=== PATIENT | male | born 1950 | race Caucasian/White ===

== ENCOUNTER → 2019-12-10 | Outpatient (CLI) | payer MEDICARE, OTHER ==
--- NOTE | 2019-12-10 10:09 | Diagnostic Imaging Report ---
PROCEDURE: CT lumbar spine without contrast. TECHNIQUE: Multiple contiguous axial images were obtained through the lumbar spine without the use of intravenous contrast. Sagittal and coronal reformations were then performed. Auto Exposure Controls were utilized during the CT exam to meet ALARA standards for radiation dose reduction. INDICATION: Low back pain and left-sided pain. COMPARISON: No prior studies are available for comparison. FINDINGS: There is normal lumbar lordotic curvature. Minimal retrolisthesis of L2 on L3 is identified. There are postsurgical changes in the lumbar spine. There is posterior instrumented fusion with vertical stabilization rods and bipedicular screws extending from L3 through L5. Decompression laminectomy at these levels also noted. The hardware is intact. No fracture or loosening is identified. Intervertebral prosthesis at the L4-L5 level is noted. The vertebral body heights are maintained. No acute compression fractures are identified. There is multilevel lumbar degenerative disc disease with variable disc space narrowing and marginal spurring. No acute bony abnormality is detected. The paraspinous tissues are unremarkable. Aorta is non-aneurysmal. IMPRESSION: Postoperative changes, decompression laminectomy and posterior instrumented fusion L3 through L5. No hardware fracture or loosening is identified. No acute bony abnormality is detected. Dictated by: Dictated on workstation # [id number]
== END ==
LOC: RAD FS 09:49
PROVIDERS: ATTEND Family Medicine
DX: M45.6 Ankylosing spondylitis lumbar region (principal); Z98.890 Other specified postprocedural states
CPT/HCPCS: 72131

== ENCOUNTER 2020-10-24 11:03 | Inpatient (IN) | payer MEDICARE, OTHER ==
[~2020-10-24] VITALS: Ht 188 cm; Wt 97.9 kg
--- NOTE | 2020-10-24 11:52 | NUR ---
Pt reports to Dr. Morales he would like to be a modified code. Pt would like ventilation or respiratory efforts only, but no CPR.
[2020-10-24] MEDS ORDERED: LACTATED RINGERS 1,000 ML IV ONE ×2 (11:54→12:00)
[2020-10-24 12:20] LABS: BILIRUBIN,URINE NEGATIVE (NEGATIVE); CLARITY,URINE CLEAR; COLOR,URINE YELLOW; GLUCOSE, URINE (UA) NEGATIVE (NEGATIVE); KETONES,URINE 1+ (NEGATIVE); LEUKOCYTE ESTERASE ,URINE NEGATIVE (NEGATIVE); NITRITE,URINE NEGATIVE (NEGATIVE); PROTEIN,URINE TRACE (NEGATIVE)
--- NOTE | 2020-10-24 12:20 | NUR ---
Spoke to pt's via phone regarding plan of care.
[2020-10-24 12:27] LABS: BASOPHILS % (AUTO) 0 % (0-10); EOSINOPHILS # (AUTO) 0.2 10^3/uL (0.0-0.3); EOSINOPHILS % (AUTO) 2 % (0-10); HEMATOCRIT 44 % (40-54); HEMOGLOBIN 14.7 g/dL (13.3-17.7); LYMPHOCYTES # (AUTO) 0.6 10^3/uL (1.0-4.0); LYMPHOCYTES % (AUTO) 6 % (12-44); MEAN CORPUSCULAR HEMOGLOBIN 32 pg (25-34); MEAN CORPUSCULAR HGB CONC 33 g/dL (32-36); MEAN CORPUSCULAR VOLUME 96 fL (80-99); MEAN PLATELET VOLUME 10.2 fL (9.0-12.2); MONOCYTES # (AUTO) 0.5 10^3/uL (0.0-1.0); MONOCYTES % (AUTO) 6 % (0-12); NEUTROPHILS # (AUTO) 7.9 10^3/uL (1.8-7.8); NEUTROPHILS % (AUTO) 85 % (42-75); PLATELET COUNT 412 10^3/uL (130-400); WHITE BLOOD COUNT 9.3 10^3/uL (4.3-11.0)
[2020-10-24 12:34] LABS: ALBUMIN 3.7 GM/DL (3.2-4.5); CHLORIDE 102 MMOL/L (98-107); SODIUM 136 MMOL/L (135-145)
[2020-10-24 12:35] LABS: CALCIUM 9.3 MG/DL (8.5-10.1)
[2020-10-24 12:36] LABS: BACTERIA,URINE TRACE /HPF; WBC,URINE RARE /HPF
[2020-10-24 12:37] LABS: GLUCOSE 104 MG/DL (70-105); TOTAL PROTEIN 7.9 GM/DL (6.4-8.2)
[2020-10-24 12:37] LABS: AMORPHOUS SEDIMENT,UR FEW AMOR URATES /LPF
[2020-10-24 12:38] LABS: CARBON DIOXIDE 21 MMOL/L (21-32)
[2020-10-24 12:40] LABS: ALKALINE PHOSPHATASE 155 U/L (40-136)
[2020-10-24 12:41] LABS: CREATININE SERUM 1.05 MG/DL (0.60-1.30); GFR ESTIMATED > 60
[2020-10-24 12:42] LABS: BUN/CREATININE RATIO 21
--- NOTE | 2020-10-24 12:42 | Diagnostic Imaging Report ---
INDICATION: Covid and hypoxia. COMPARISON: I have no comparisons. FINDINGS: There are extensive patchy bilateral pulmonary infiltrates involving all 5 lobes. There is no effusion or pneumothorax. The heart size and pulmonary vascularity appear normal. No failure pattern. The unipolar pacemaker appears unremarkable. IMPRESSION: Bilateral multifocal pneumonia without pleural fluid or failure pattern. The report was faxed to Infection Control by denita@12:39 PM. Dictated by: Dictated on workstation # [id number]
[2020-10-24 12:43] LABS: ALANINE AMINOTRANSFERASE 40 U/L (0-55)
[2020-10-24 12:44] LABS: MAGNESIUM 2.5 MG/DL (1.6-2.4)
[2020-10-24 13:10] LABS: EOSINOPHILS % (MANUAL) 1 %; LYMPHOCYTES % (MANUAL) 5 %; MONOCYTES % (MANUAL) 5 %; NEUTROPHILS % (MANUAL) 89 %; RBC MORPH NORMAL
[2020-10-24] MEDS ORDERED: cefTRIAXone FOR IV USE 1,000 MG in WATER (STERILE) FOR INJECTION 10 ML IV ONE (13:15)
--- NOTE | 2020-10-24 13:40 | ED General ---
General Chief Complaint: Respiratory Problems Stated Complaint: COVID + Nursing Triage Note: Pt to ED in wheelchair from [facility]. Pt reports COVID symptoms began on October 04 and pt tested positive on October 12. Pt brought log of O2 sats and temperature since diagnosis and pt's O2 sats have been in the 80s since. Pt has had intermittent temperature of 101-102 for two weeks. Pt reports 35 pound weight loss since diagnosis. Pt reports semml of food is revolting and pt is unable to eat. Nursing Sepsis Screen: No Definite Risk Source of Information: Patient Exam Limitations: No Limitations History of Present Illness Date Seen by Provider: Oct 24, 2020 Time Seen by Provider: 11:50 Initial Comments This 70-year-old gentleman presents to the emergency room with a prolonged course of COVID-19. He initially became ill around October 04. He tested positive on October 12. Since then he has struggled with a 35 pound weight loss, loss of appetite, shortness of breath, persistent hypoxic measurements in the 80s at home on room air, recurrent fevers, and weakness. He received a round of a azithromycin and prednisone but still is struggling. He presents to the ER today at the urging of his . He is hypoxic on initial assessment. He had diarrhea early in the course of illness but that has resolved. Dr. Blair is his primary care provider at [facility]. Allergies and Home Medications Allergies Coded Allergies: No Known Drug Allergies (Unverified , 10/24/20) Patient Home Medication List Home Medication List Reviewed: Yes Review of Systems Review of Systems Constitutional: see HPI EENTM: no symptoms reported Respiratory: see HPI Cardiovascular: no symptoms reported Gastrointestinal: see HPI Genitourinary: no symptoms reported Musculoskeletal: no symptoms reported Skin: no symptoms reported Psychiatric/Neurological: No Symptoms Reported Hematologic/Lymphatic: No Symptoms Reported Immunological/Allergic: no symptoms reported Past Xldmezo-Dfeqov-Jiowit Hx Past Med/Social Hx: Reviewed Nursing Past Med/Soc Hx Patient Social History Alcohol Use: Past History Recreational Drug Use: No Smoking Status: Former Smoker 2nd Hand Smoke Exposure: No Recent Foreign Travel: No Contact w/Someone Who Travel: No Recent Infectious Disease Expo: No Recent Hopitalizations: No Seasonal Allergies Seasonal Allergies: No Past Medical History Surgeries: Yes (hernia) Abdominal Respiratory: No Cardiac: Yes (bradycardia pacemaker) Irregular Heartbeat Neurological: No Genitourinary: Yes ("prostate problems") Gastrointestinal: Yes (hernia surgery) Musculoskeletal: Yes Arthritis Endocrine: No HEENT: No Cancer: No Psychosocial: Yes Anxiety Integumentary: No Blood Disorders: No Adverse Reaction/Blood Tranf: No Physical Exam-Suspected Sepsis Physical Exam Vital Signs Vital Signs - First Documented 10/24/20 11:15 Temp 37.3 Pulse 95 Resp 30 B/P (MAP) 129/83 (98) Pulse Ox 86 O2 Delivery Room Air O2 Flow Rate 4.00 Capillary Refill : Less Than 3 Seconds Blood Pressure Mean: 98 Height, Weight, BMI Height: '" Weight: lbs. oz. 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 Norm as Tested Skin: normal color, warm/dry Focused Exam Lactate Level 10/24/20 14:01: Lactic Acid Level 1.30 Lactic Acid Level Progress/Results/Core Measures Suspected Sepsis Recent Fever Within 48 Hours: Yes Infection Criteria Present: None New/Unexplained Altered Menta: No Sepsis Screen: No Definite Risk SIRS Temperature: Pulse: 95 Respiratory Rate: 30 Laboratory Tests 10/24/20 11:30: White Blood Count 9.3 Blood Pressure 129 /83 Mean: 98 10/24/20 14:01: Lactic Acid Level 1.30 Laboratory Tests 10/24/20 11:30: Creatinine 1.05, INR Comment 1.1, Platelet Count 412H, Total Bilirubin 1.0 Results/Orders Lab Results Laboratory Tests Test 10/24/20 11:30 10/24/20 12:05 10/24/20 14:01 Range/Units White Blood Count 9.3 4.3-11.0 10^3/uL Red Blood Count 4.58 4.30-5.52 10^6/uL Hemoglobin 14.7 13.3-17.7 g/dL Hematocrit 44 40-54 % Mean Corpuscular Volume 96 80-99 fL Mean Corpuscular Hemoglobin 32 25-34 pg Mean Corpuscular Hemoglobin Concent 33 32-36 g/dL Red Cell Distribution Width 13.2 10.0-14.5 % Platelet Count 412 H 130-400 10^3/uL Mean Platelet Volume 10.2 9.0-12.2 fL Immature Granulocyte % (Auto) 1 % Neutrophils (%) (Auto) 85 H 42-75 % Lymphocytes (%) (Auto) 6 L 12-44 % Monocytes (%) (Auto) 6 0-12 % Eosinophils (%) (Auto) 2 0-10 % Basophils (%) (Auto) 0 0-10 % Neutrophils # (Auto) 7.9 H 1.8-7.8 10^3/uL Lymphocytes # (Auto) 0.6 L 1.0-4.0 10^3/uL Monocytes # (Auto) 0.5 0.0-1.0 10^3/uL Eosinophils # (Auto) 0.2 0.0-0.3 10^3/uL Basophils # (Auto) 0.0 0.0-0.1 10^3/uL Immature Granulocyte # (Auto) 0.1 0.0-0.1 10^3/uL Neutrophils % (Manual) 89 % Lymphocytes % (Manual) 5 % Monocytes % (Manual) 5 % Eosinophils % (Manual) 1 % Blood Morphology Comment NORMAL Prothrombin Time 14.5 12.2-14.7 SEC INR Comment 1.1 0.8-1.4 Activated Partial Thromboplast Time 42 H 24-35 SEC D-Dimer 2.49 H 0.00-0.49 UG/ML Sodium Level 136 135-145 MMOL/L Potassium Level 4.0 3.6-5.0 MMOL/L Chloride Level 102 98-107 MMOL/L Carbon Dioxide Level 21 21-32 MMOL/L Anion Gap 13 5-14 MMOL/L Blood Urea Nitrogen 22 H 7-18 MG/DL Creatinine 1.05 0.60-1.30 MG/DL Estimat Glomerular Filtration Rate > 60 BUN/Creatinine Ratio 21 Glucose Level 104 70-105 MG/DL Calcium Level 9.3 8.5-10.1 MG/DL Corrected Calcium 9.5 8.5-10.1 MG/DL Magnesium Level 2.5 H 1.6-2.4 MG/DL Total Bilirubin 1.0 0.1-1.0 MG/DL Aspartate Amino Transf (AST/SGOT) 26 5-34 U/L Alanine Aminotransferase (ALT/SGPT) 40 0-55 U/L Alkaline Phosphatase 155 H 40-136 U/L C-Reactive Protein High Sensitivity 23.39 H 0.00-0.50 MG/DL Total Protein 7.9 6.4-8.2 GM/DL Albumin 3.7 3.2-4.5 GM/DL Procalcitonin 0.11 H <0.10 NG/ML Urine Color YELLOW Urine Clarity CLEAR Urine pH 6.0 5-9 Urine Specific [place] 1.020 1.016-1.022 Urine Protein TRACE H NEGATIVE Urine Glucose (UA) NEGATIVE NEGATIVE Urine Ketones 1+ H NEGATIVE Urine Nitrite NEGATIVE NEGATIVE Urine Bilirubin NEGATIVE NEGATIVE Urine Urobilinogen 2.0 < = 1.0 MG/DL Urine Leukocyte Esterase NEGATIVE NEGATIVE Urine RBC (Auto) NEGATIVE NEGATIVE Urine RBC NONE /HPF Urine WBC RARE /HPF Urine Crystals PRESENT H /LPF Urine Amorphous Sediment FEW MICHAEL URATES H /LPF Urine Bacteria TRACE /HPF Urine Casts NONE /LPF Urine Mucus NEGATIVE /LPF Urine Culture Indicated NO Lactic Acid Level 1.30 0.50-2.00 MMOL/L Micro Results Microbiology 10/24/20 Blood Culture, Received Pending My Orders Orders - NIHARIKA ARANGO MD Lactated Ringers (Lr 1000 Ml Iv Solution (10/24/20 11:54) Chest 1 View, Ap/Pa Only (10/24/20 11:58) Cbc With Automated Diff (10/24/20 11:58) Comprehensive Metabolic Panel (10/24/20 11:58) Fibrin Degradation Products (10/24/20 11:58) Procalcitonin (Pct) (10/24/20 11:58) Hs C Reactive Protein (10/24/20 11:58) Magnesium (10/24/20 11:58) Ua Culture If Indicated (10/24/20 11:58) Ed Iv/Invasive Line Start (10/24/20 11:58) Lactated Ringers (Lr 1000 Ml Iv Solution (10/24/20 12:00) O2 (10/24/20 11:58) Monitor-Rhythm Ecg Trace Only (10/24/20 11:58) Manual Differential (10/24/20 11:30) Ct Angio Chest W (10/24/20 13:13) Blood Culture (10/24/20 13:13) Sputum Culture (10/24/20 13:13) Urine Culture (10/24/20 13:13) Protime With Inr (10/24/20 13:13) Partial Thromboplastin Time (10/24/20 13:13) Ed Iv/Invasive Line Start (10/24/20 13:13) Vital Signs Adult Sepsis Patie Q15M (10/24/20 13:13) O2 (10/24/20 13:13) Remove Rings In Anticipation O (10/24/20 13:13) Lactic Acid Analyzer (10/24/20 13:13) Dexamethasone Injection (Decadron Inje (10/24/20 13:15) Ceftriaxone For Iv Use (Rocephin For I (10/24/20 13:15) Iohexol Injection (Omnipaque 350 Mg/Ml 1 (10/24/20 13:45) Received Contrast (Hold Metformin- Contr (10/24/20 13:45) Sodium Chloride Flush (Catheter Flush Sy (10/24/20 13:45) Ns (Ivpb) (Sodium Chloride 0.9% Ivpb Bag (10/24/20 13:45) Ketorolac Injection (Toradol Injection) (10/24/20 14:45) Medications Given in ED Current Medications Medications Dose Ordered Sig/Vivian Route Start Time Stop Time Status Last Admin Dose Admin Ceftriaxone Sodium 1000 mg/ Sterile Water 10 ml @ 200 mls/hr ONCE ONCE IV 10/24/20 13:15 10/24/20 13:17 DC 10/24/20 14:28 200 MLS/HR Dexamethasone Sodium Phosphate 6 mg ONCE ONCE IV 10/24/20 13:15 10/24/20 13:16 DC 10/24/20 14:25 6 MG Iohexol 100 ml ONCE ONCE IV 10/24/20 13:45 10/24/20 13:46 DC 10/24/20 14:15 79 ML Ketorolac Tromethamine 15 mg ONCE ONCE IVP 10/24/20 14:45 10/24/20 14:46 DC 10/24/20 14:44 15 MG Lactated Ringer's 1,000 ml @ STK-MED ONCE IV 10/24/20 11:54 10/24/20 11:57 DC 10/24/20 11:59 1,000 MLS/HR Sodium Chloride 100 ml ONCE ONCE IV 10/24/20 13:45 10/24/20 13:46 DC 10/24/20 14:16 80 ML Vital Signs/I&O 10/24/20 10/24/20 10/24/20 10/24/20 11:15 11:15 16:00 16:18 Temp 37.3 37.3 36.9 Pulse 95 75 85 Resp 30 30 18 B/P (MAP) 129/83 (98) 129/81 (98) 136/83 Pulse Ox 86 94 94 95 O2 Delivery Room Air OxyMask Nasal Cannula Nasal Cannula O2 Flow Rate 4.00 4.00 2.00 10/24/20 10/24/20 10/24/20 10/24/20 16:30 16:44 16:55 19:33 Temp 36.9 36.9 Pulse 85 80 Resp 18 B/P (MAP) 137/89 (105) Pulse Ox 95 95 91 O2 Delivery Nasal Cannula Nasal Cannula Nasal Cannula O2 Flow Rate 2.00 2.00 2.00 Capillary Refill : Less Than 3 Seconds Blood Pressure Mean: 98 Progress Note #1: Time: 13:39 Progress Note Patient received a liter of IV fluid. D-dimer was positive and CT angiogram is pending. Chest x-ray shows multilobar pneumonia and CRP is quite high. Concurrent pneumonia cannot be ruled out. Blood culture and lactic acid are be ing drawn and treatment with Rocephin is being initiated. Progress Note #2: Progress Note Patient appeared to have a multilobar pneumonia. He was treated with Rocephin and placed on the pneumonia protocol. Blood cultures and lactic acid were obtained. Due to his persistent hypoxic state and concerned about development of secondary pneumonia, he is being admitted. Diagnostic Imaging Diagonstic Imaging: Xray Plain Films/CT/US/NM/MRI: chest Comments NAME: MATEO JENKINS [facility] REC#: [id number] PT STATUS: ADM IN : 1950 PHYSICIAN: NIHARIKA ARANGO MD ADMIT DATE: 10/24/20/ Signed Date of Exam:10/24/20 CHEST 1 VIEW, AP/PA ONLY INDICATION: Covid and hypoxia. COMPARISON: I have no comparisons. FINDINGS: There are extensive patchy bilateral pulmonary infiltrates involving all 5 lobes. There is no effusion or pneumothorax. The heart size and pulmonary vascularity appear normal. No failure pattern. The unipolar pacemaker appears unremarkable. IMPRESSION: Bilateral multifocal pneumonia without pleural fluid or failure pattern. The report was faxed to Infection Control by [email or web address]@12:39 PM. Dictated by: Dictated on workstation # [id number] Dict: 10/24/20 1237 Trans: 10/24/20 1640 [id number] Interpreted by: VEE MARTINS Electronically signed by: VEE MARTINS 10/24/20 1640 Diagonstic Imaging: CT Plain Films/CT/US/NM/MRI: chest Comments NAME: MATEO JENKINS [facility] REC#: [id number] PT STATUS: ADM IN : 1950 PHYSICIAN: NIHARIKA ARANGO MD ADMIT DATE: 10/24/20 Signed Date of Exam:10/24/20 CT ANGIO CHEST W PROCEDURE: CT angiography of the chest with contrast. TECHNIQUE: Multiple contiguous axial images were obtained through the chest after uneventful bolus administration of intravenous contrast. 3D reconstructed CTA MIP acquisitions were also performed. Auto Exposure Controls were utilized during the CT exam to meet ALARA standards for radiation dose reduction. INDICATION: COVID pneumonia with cough and shortness of air. FINDINGS: Evaluation of the pulmonary arterial system is without evidence of thromboembolism. No definite filling defects are seen within central, lobar, or segmental branches. Thoracic aorta is normal in caliber. There is no dissection. There is no pericardial fluid. There is trace left pleural fluid. There are extensive airspace infiltrates throughout bilateral upper lobes as well as bilateral lower lobes, consistent with pneumonia. Upper abdomen is unremarkable. IMPRESSION: 1. No evidence of pulmonary embolism or thoracic aortic dissection. 2. Extensive bilateral airspace pulmonary infiltrates, consistent with pneumonia. Dictated by: Dictated on workstation # [id number] Dict: 10/24/20 1420 Trans: 10/24/20 183 [facility] [id number] Interpreted by: ANGELES WILLIS MD Electronically signed by: ANGELES WILLIS MD 10/24/20 183 Departure Communication (Admissions) Time/Spoke to Admitting Phy: 14:55 Dr. Ventura Impression Primary Impression: COVID-19 Additional Impressions: Hypoxia Weight loss Pneumonia Qualified Codes: J18.9 - Pneumonia, unspecified organism Disposition: ADMITTED INPATIENT Condition: Stable Admissions Decision to Admit Reason: Admit from ER (General) Decision to Admit/Date: Oct 24, 2020 Time/Decision to Admit Time: 12:00 Departure-Patient Inst. Referrals: MADELYN BLAIR MD (PCP/Family) Primary Care Physician NIHARIKA ARANGO MD Oct 24, 2020 13:40
[2020-10-24 13:44] LABS: INR 1.1 (0.8-1.4); PROTHROMBIN TIME PATIENT 14.5 SEC (12.2-14.7)
[2020-10-24] MEDS ORDERED: NS 100 ML (IVPB) BAG IV ONE (13:45)
[2020-10-24] MEDS ORDERED: CATHETER FLUSH 10 ML SYR IV PRN ×2 (13:45→16:45)
[2020-10-24] MEDS ORDERED: HOLD METFORMIN - RECEIVED CONTRAST 20 ML VIAL IV SCH (13:45)
[2020-10-24] MEDS ORDERED: IOHEXOL 350 MG/ML 100 ML (OMNIPAQUE 350) VIAL IV ONE (13:45)
--- NOTE | 2020-10-24 14:27 | Diagnostic Imaging Report ---
PROCEDURE: CT angiography of the chest with contrast. TECHNIQUE: Multiple contiguous axial images were obtained through the chest after uneventful bolus administration of intravenous contrast. 3D reconstructed CTA MIP acquisitions were also performed. Auto Exposure Controls were utilized during the CT exam to meet ALARA standards for radiation dose reduction. INDICATION: COVID pneumonia with cough and shortness of air. FINDINGS: Evaluation of the pulmonary arterial system is without evidence of thromboembolism. No definite filling defects are seen within central, lobar, or segmental branches. Thoracic aorta is normal in caliber. There is no dissection. There is no pericardial fluid. There is trace left pleural fluid. There are extensive airspace infiltrates throughout bilateral upper lobes as well as bilateral lower lobes, consistent with pneumonia. Upper abdomen is unremarkable. IMPRESSION: 1. No evidence of pulmonary embolism or thoracic aortic dissection. 2. Extensive bilateral airspace pulmonary infiltrates, consistent with pneumonia. Dictated by: Dictated on workstation # [id number]
[2020-10-24] MEDS ORDERED: KETOROLAC 30 MG/ML VIAL IVP ONE (14:45)
[2020-10-24 16:18] VITALS: BP 136/83
[2020-10-24] MEDS: LACTATED RINGERS 1,000 ML IV SCH (16:47)
[2020-10-24] MEDS: ENOXAPARIN 40 MG/0.4 ML (LOVENOX) SYR SC SCH (16:52)
[2020-10-24 16:55] VITALS: BP 136/83
[2020-10-24] MEDS ORDERED: AZITHROMYCIN 500 MG/NS 250 ML IVPB IV NR ×2 (17:00)
[2020-10-24] MEDS ORDERED: RT-ALBUTEROL INHALER HFA (VENTOLIN HFA) 18 GM IH PRN (17:00)
[2020-10-24] MEDS: RT-ALBUTEROL INHALER HFA (VENTOLIN HFA) 18 GM IH SCH ×2 (18:00→21:42)
[2020-10-24 19:33] VITALS: BP 137/89
[2020-10-24] MEDS ORDERED: OXYB10TA29 PO (23:48)
[2020-10-24] MEDS ORDERED: ALFU10TA12 PO (23:48)
[2020-10-24] MEDS ORDERED: HYDR-3817 PO (23:48)
[2020-10-24] MEDS ORDERED: CYCL10TA9 PO (23:48)
[2020-10-24] MEDS ORDERED: METO-352 PO (23:48)
[2020-10-24] MEDS ORDERED: GBPN600T PO (23:48)
[2020-10-24] MEDS ORDERED: MELO15TA39 PO (23:48)
[2020-10-24] MEDS ORDERED: ATOR10TA66 PO (23:48)
[2020-10-24] MEDS ORDERED: ALPR0.5T7 PO (23:51)
[2020-10-25] VITALS: BP 122/69
[2020-10-25] MEDS: LACTATED RINGERS 1,000 ML IV SCH ×4 (00:38→15:19)
[2020-10-25] MEDS: RT-ALBUTEROL INHALER HFA (VENTOLIN HFA) 18 GM IH SCH ×6 (02:55→21:21)
[2020-10-25 03:58] VITALS: BP 146/84
[2020-10-25] MEDS: ONDANSETRON 4 MG/2 ML (SDV) Z0FRAN IV PRN ×2 (04:33→08:49)
[2020-10-25 06:17] LABS: BASOPHILS % (AUTO) 0 % (0-10); EOSINOPHILS % (AUTO) 0 % (0-10); HEMATOCRIT 36 % (40-54); HEMOGLOBIN 11.9 g/dL (13.3-17.7); LYMPHOCYTES # (AUTO) 0.5 10^3/uL (1.0-4.0); LYMPHOCYTES % (AUTO) 8 % (12-44); MEAN CORPUSCULAR HEMOGLOBIN 32 pg (25-34); MEAN CORPUSCULAR HGB CONC 33 g/dL (32-36); MEAN CORPUSCULAR VOLUME 96 fL (80-99); MEAN PLATELET VOLUME 10.2 fL (9.0-12.2); MONOCYTES # (AUTO) 0.4 10^3/uL (0.0-1.0); MONOCYTES % (AUTO) 6 % (0-12); NEUTROPHILS # (AUTO) 5.2 10^3/uL (1.8-7.8); NEUTROPHILS % (AUTO) 85 % (42-75); PLATELET COUNT 383 10^3/uL (130-400); WHITE BLOOD COUNT 6.1 10^3/uL (4.3-11.0)
[2020-10-25 06:30] LABS: ALBUMIN 3.2 GM/DL (3.2-4.5); CHLORIDE 105 MMOL/L (98-107); POTASSIUM 4.3 MMOL/L (3.6-5.0); SODIUM 136 MMOL/L (135-145)
[2020-10-25 06:31] LABS: CALCIUM 8.5 MG/DL (8.5-10.1)
[2020-10-25 06:32] LABS: GLUCOSE 146 MG/DL (70-105)
[2020-10-25 06:33] LABS: TOTAL PROTEIN 6.7 GM/DL (6.4-8.2)
[2020-10-25 06:34] LABS: BILIRUBIN,TOTAL 0.6 MG/DL (0.1-1.0); CARBON DIOXIDE 20 MMOL/L (21-32)
[2020-10-25 06:36] LABS: ALKALINE PHOSPHATASE 131 U/L (40-136); CREATININE SERUM 0.89 MG/DL (0.60-1.30); GFR ESTIMATED > 60
[2020-10-25 06:37] LABS: BUN/CREATININE RATIO 26
[2020-10-25 06:39] LABS: ALANINE AMINOTRANSFERASE 34 U/L (0-55)
[2020-10-25 08:00] VITALS: BP 137/78
[2020-10-25] MEDS: AZITHROMYCIN 250 MG TAB (ZITHROMAX) PO SCH (08:06)
[2020-10-25 12:00] VITALS: BP 153/83
[2020-10-25] MEDS: cefTRIAXone 1,000 MG/SWFI 10 ML IV PUSH IV SCH ×2 (13:58)
--- NOTE | 2020-10-25 15:05 | NUR ---
SPOKE WITH THE PT (CALLED HIS ROOM PHONE) AND WENT THRU THE EXT MED HISTORY. Pranav HEREDIA RN ENTERED THE MED REC THIS MORNING AND ALL INFORMATION THE PT PROVIDES MATCHED WHAT THE NURSE ENTERED. FOR THIS REASON I WILL NOT MAKE ANY CHANGES TO THE MED REC AT THIS TIME
--- NOTE | 2020-10-25 15:39 | History & Physical ---
HPI History of Present Illness: 70 yo M that presented with shortness of breath and hypoxia with h/o positive covid on Oct 12. Patient states that he started having symptoms on Oct 04 and symptoms progressively got worse. 2 days ago he started feeling very weak and felt like it was time to come to the hospital. 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 He gets profoundly short of breath with any exertion and has become more weak. Patient states that he has had a very poor appetite and has had about a 35# weight loss since the beginning of Oct. He has been seen by his PCP and has completed a course of Azithromycin and steroids with little improvement. He has been having intermittent fevers 101-102 but has not had one for several days. Has had flu negative tests as an outpatient. Denies any HTN, DM or CAD. He is on chronic pain medications for neck and back pain s/p silvia insertion and fusion. Source: patient Exam Limitations: no limitations Date seen by provider: Oct 25, 2020 Time Seen by Provider: 09:45 Attending Physician Christin Ventura MD PCP Madelyn Blair MD Consult Date of Admission Oct 24, 2020 at 15:01 Home Medications Home Medications Reviewed patient Home Medication Reconciliation performed by pharmacy medication reconciliations lube technician and/or nursing. Patients Allergies have been reviewed. Allergies Coded Allergies: No Known Drug Allergies (Unverified , 10/24/20) [id number]-Szzuva Hx Patient Social History Living Status: Lives at home with Alcohol Use: Past History Recreational Drug Use: No Smoking Status: Former Smoker 2nd Hand Smoke Exposure: No Recent Foreign Travel: No Contact w/other who traveled: No Recent Hopitalizations: No Recent Infectious Disease Expo: No Immunizations Up To Date Date of Influenza Vaccine: Aug 03, 2020 Past Medical History Back and Neck surgery Bradycardia w/ pacer placement Family Medical History Significant Family History: No Pertinent Family Hx Review of Systems (CHC) Constitutional: fever, malaise, weakness EENTM: no symptoms reported Respiratory: dyspnea on exertion, short of breath Cardiovascular: no symptoms reported; No chest pain, No edema Gastrointestinal: No abdominal pain; loss of appetite, nausea; No vomiting Genitourinary: no symptoms reported; No dysuria, No frequency, No hematuria Musculoskeletal: back pain (chronic) Skin: no symptoms reported Psychiatric/Neurological: No Symptoms Reported Reviewed Test Results Reviewed Test Results Lab Laboratory Tests Test 10/25/20 05:53 Range/Units White Blood Count 6.1 4.3-11.0 10^3/uL Red Blood Count 3.72 L 4.30-5.52 10^6/uL Hemoglobin 11.9 L 13.3-17.7 g/dL Hematocrit 36 L 40-54 % Mean Corpuscular Volume 96 80-99 fL Mean Corpuscular Hemoglobin 32 25-34 pg Mean Corpuscular Hemoglobin Concent 33 32-36 g/dL Red Cell Distribution Width 13.1 10.0-14.5 % Platelet Count 383 130-400 10^3/uL Mean Platelet Volume 10.2 9.0-12.2 fL Immature Granulocyte % (Auto) 1 % Neutrophils (%) (Auto) 85 H 42-75 % Lymphocytes (%) (Auto) 8 L 12-44 % Monocytes (%) (Auto) 6 0-12 % Eosinophils (%) (Auto) 0 0-10 % Basophils (%) (Auto) 0 0-10 % Neutrophils # (Auto) 5.2 1.8-7.8 10^3/uL Lymphocytes # (Auto) 0.5 L 1.0-4.0 10^3/uL Monocytes # (Auto) 0.4 0.0-1.0 10^3/uL Eosinophils # (Auto) 0.0 0.0-0.3 10^3/uL Basophils # (Auto) 0.0 0.0-0.1 10^3/uL Immature Granulocyte # (Auto) 0.1 0.0-0.1 10^3/uL Sodium Level 136 135-145 MMOL/L Potassium Level 4.3 3.6-5.0 MMOL/L Chloride Level 105 98-107 MMOL/L Carbon Dioxide Level 20 L 21-32 MMOL/L Anion Gap 11 5-14 MMOL/L Blood Urea Nitrogen 23 H 7-18 MG/DL Creatinine 0.89 0.60-1.30 MG/DL Estimat Glomerular Filtration Rate > 60 BUN/Creatinine Ratio 26 Glucose Level 146 H 70-105 MG/DL Calcium Level 8.5 8.5-10.1 MG/DL Corrected Calcium 9.1 8.5-10.1 MG/DL Total Bilirubin 0.6 0.1-1.0 MG/DL Aspartate Amino Transf (AST/SGOT) 23 5-34 U/L Alanine Aminotransferase (ALT/SGPT) 34 0-55 U/L Alkaline Phosphatase 131 40-136 U/L Total Protein 6.7 6.4-8.2 GM/DL Albumin 3.2 3.2-4.5 GM/DL Physical Exam-(CHC) Physical Exam Vital Signs VS - Last 72 Hours, by Label 10/24/20 10/24/20 10/24/20 10/24/20 11:15 11:15 16:00 16:18 Temp 37.3 37.3 36.9 Pulse 95 75 85 Resp 30 30 18 B/P (MAP) 129/83 (98) 129/81 (98) 136/83 Pulse Ox 86 94 94 95 O2 Delivery Room Air OxyMask Nasal Cannula Nasal Cannula O2 Flow Rate 4.00 4.00 2.00 10/24/20 10/24/20 10/24/20 10/24/20 16:30 16:44 16:55 19:33 Temp 36.9 36.9 Pulse 85 80 Resp 18 B/P (MAP) 137/89 (105) Pulse Ox 95 95 91 O2 Delivery Nasal Cannula Nasal Cannula Nasal Cannula O2 Flow Rate 2.00 2.00 2.00 10/24/20 10/24/20 10/25/20 10/25/20 20:50 21:42 00:00 02:55 Temp 36.0 Pulse 90 Resp 18 B/P (MAP) 122/69 (86) Pulse Ox 90 90 92 90 O2 Delivery Nasal Cannula Nasal Cannula Nasal Cannula Nasal Cannula O2 Flow Rate 2.00 2.00 2.00 3.00 10/25/20 10/25/20 10/25/20 10/25/20 03:58 07:30 08:00 08:00 Temp 36.7 36.5 Pulse 102 101 Resp 17 22 B/P (MAP) 146/84 (104) 137/78 (97) Pulse Ox 92 92 93 93 O2 Delivery Nasal Cannula Nasal Cannula Nasal Cannula Nasal Cannula O2 Flow Rate 2.00 2.00 2.00 2.00 10/25/20 10/25/20 11:20 12:00 Temp 36.4 Pulse 89 Resp 20 B/P (MAP) 153/83 (106) Pulse Ox 92 94 O2 Delivery Nasal Cannula Nasal Cannula O2 Flow Rate 2.00 2.00 Capillary Refill : Less Than 3 SecondsLess Than 3 Seconds General Appearance: WD/WN, moderate distress (with any activity) HEENT: PERRL/EOMI Neck: non-tender, full range of motion, supple Respiratory: chest non-tender, decreased breath sounds, accessory muscle use; No crackles Cardiovascular: normal peripheral pulses, regular rate, rhythm, no edema, no murmur Gastrointestinal: normal bowel sounds, non tender, soft, no organomegaly Back: no CVA tenderness Extremities: non-tender, no pedal edema, no calf tenderness, normal capillary refill Neurologic/Psychiatric: provider engagement executive II-XII nml as tested, alert, oriented x 3 Skin: normal color, warm/dry Assessment/Plan Assessment/Plan Admission Status: Inpatient Order (span 2 midnights) Reason for Inpatient Admission: Patient requiring supplemental oxygen and has not previous oxygen requirement, failed outpatient management (1) Acute respiratory failure with hypoxia Status: Acute Assessment & Plan: - MAT protocol, will wean oxygen as tolerated, Steroid, antibiotics (2) Pneumonia due to COVID-19 virus Status: Acute Assessment & Plan: - start anti viral, will hold on plasma given duration since onset of symptoms (3) Weight loss Status: Acute Assessment & Plan: - IVFs, Will continue to monitor (4) Debility Status: Acute Assessment & Plan: - Discussed possible need for Rehab after hospitalization (5) DVT prophylaxis Status: Acute Assessment & Plan: - Lovenox Clinical Quality Measures DVT/VTE Risk/Contraindication: Risk Factor Score Per Nursin RFS Level Per Nursing on Admit: 3=High Copy Copies To 1: MADELYN BLAIR MD, HOLLY R MD Oct 25, 2020 15:39
[2020-10-25 15:49] VITALS: BP 154/81
[2020-10-25] MEDS ORDERED: REMDESIVIR INJ 200 MG in NS (IVPB) 210 ML IV NR (16:00)
[2020-10-25] MEDS: ENOXAPARIN 40 MG/0.4 ML (LOVENOX) SYR SC SCH (17:21)
[2020-10-25] MEDS: LOPERAMIDE 2 MG (IMODIUM) TABLET PO PRN (17:21)
[2020-10-25] MEDS: ACETAMINOPHEN 500 MG TAB (TYLENOL) PO PRN (17:22)
[2020-10-25 19:24] VITALS: BP 148/76
[2020-10-26] VITALS: BP 152/84
[2020-10-26] MEDS: LACTATED RINGERS 1,000 ML IV SCH ×2 (01:50→06:33)
[2020-10-26 04:00] VITALS: BP 133/84
[2020-10-26 05:09] LABS: BASOPHILS % (AUTO) 0 % (0-10); EOSINOPHILS % (AUTO) 0 % (0-10); HEMATOCRIT 37 % (40-54); HEMOGLOBIN 12.1 g/dL (13.3-17.7); LYMPHOCYTES # (AUTO) 0.8 10^3/uL (1.0-4.0); LYMPHOCYTES % (AUTO) 8 % (12-44); MEAN CORPUSCULAR HEMOGLOBIN 32 pg (25-34); MEAN CORPUSCULAR HGB CONC 33 g/dL (32-36); MEAN CORPUSCULAR VOLUME 97 fL (80-99); MEAN PLATELET VOLUME 10.2 fL (9.0-12.2); MONOCYTES # (AUTO) 0.7 10^3/uL (0.0-1.0); MONOCYTES % (AUTO) 6 % (0-12); NEUTROPHILS # (AUTO) 9.1 10^3/uL (1.8-7.8); NEUTROPHILS % (AUTO) 85 % (42-75); PLATELET COUNT 407 10^3/uL (130-400); WHITE BLOOD COUNT 10.7 10^3/uL (4.3-11.0)
[2020-10-26] MEDS: RT-ALBUTEROL INHALER HFA (VENTOLIN HFA) 18 GM IH SCH ×6 (05:09→22:53)
[2020-10-26 05:35] LABS: ALANINE AMINOTRANSFERASE 30 U/L (0-55); ALBUMIN 3.3 GM/DL (3.2-4.5); ALKALINE PHOSPHATASE 124 U/L (40-136); BILIRUBIN,TOTAL 0.4 MG/DL (0.1-1.0); BUN/CREATININE RATIO 19; CALCIUM 8.6 MG/DL (8.5-10.1); CARBON DIOXIDE 20 MMOL/L (21-32); CHLORIDE 110 MMOL/L (98-107); CREATININE SERUM 0.96 MG/DL (0.60-1.30); GFR ESTIMATED > 60; GLUCOSE 110 MG/DL (70-105); POTASSIUM 4.1 MMOL/L (3.6-5.0); SODIUM 140 MMOL/L (135-145); TOTAL PROTEIN 6.8 GM/DL (6.4-8.2)
--- NOTE | 2020-10-26 07:09 | Progress Note - Hospitalist ---
Subjective HPI/CC On Admission Date Seen by Provider: Oct 26, 2020 Time Seen by Provider: 11:00 Subjective/Events-last exam Elevated BP noted Loose stools, Imodium will be given 5L/O2 maintained No pain reported Cough continues Checked meds and labs and conferred with home service demonstrator of Systems Pulmonary: Dyspnea, Cough Focused Exam Lactate Level Objective Exam Vital Signs Vital Signs Date Time Temp Pulse Resp B/P (MAP) Pulse Ox O2 Delivery O2 Flow Rate FiO2 10/27/20 15:46 37.2 66 18 148/80 (102) 95 Nasal Cannula 1.00 Capillary Refill : Less Than 3 SecondsLess Than 3 Seconds General Appearance: No Apparent Distress, WD/WN, Chronically ill Respiratory: No Accessory Muscle Use, No Respiratory Distress, Decreased Breath Sounds Cardiovascular: Regular Rate, Rhythm Neurologic/Psychiatric: Alert, Oriented x3, No Motor/Sensory Deficits, Normal Mood/Affect Results/Procedures Lab Laboratory Tests 10/27/20 05:30 Patient resulted labs reviewed. Assessment/Plan Assessment and Plan Assess & Plan/Chief Complaint Assessment: Hypoxia Respiratory insufficiency COVID-19 PNA Loose stools HTN Plan: Home meds Abx Remdesivir O2 Monitor closely Diagnosis/Problems Diagnosis/Problems (1) Pneumonia due to COVID-19 virus Status: Acute (2) Acute respiratory failure with hypoxia Status: Acute (3) DVT prophylaxis Status: Acute (4) Debility Status: Acute (5) Weight loss Status: Acute (6) Hypoxia Status: Acute (7) Weight loss Status: Acute Clinical Quality Measures DVT/VTE Risk/Contraindication: Risk Factor Score Per Nursin RFS Level Per Nursing on Admit: 3=High SANJEEV KIRK DO Oct 26, 2020 07:09
[2020-10-26 07:32] VITALS: BP 165/84
[2020-10-26] MEDS: AZITHROMYCIN 250 MG TAB (ZITHROMAX) PO SCH (08:33)
[2020-10-26] MEDS: meTOproloL SUCCINATE 50 MG (TOPROL XL) TAB PO SCH (08:33)
[2020-10-26 11:10] VITALS: BP 164/85
[2020-10-26] MEDS: cefTRIAXone 1,000 MG/SWFI 10 ML IV PUSH IV SCH ×2 (14:55)
[2020-10-26 15:51] VITALS: BP 148/70
[2020-10-26] MEDS: REMDESIVIR INJ 100 MG in NS (IVPB) 230 ML IV SCH (16:43)
[2020-10-26] MEDS: ENOXAPARIN 40 MG/0.4 ML (LOVENOX) SYR SC SCH (17:19)
[2020-10-26 20:07] VITALS: BP 159/89
[2020-10-26] MEDS: ACETAMINOPHEN 500 MG TAB (TYLENOL) PO PRN (20:49)
[2020-10-26] MEDS: LOPERAMIDE 2 MG (IMODIUM) TABLET PO PRN (20:49)
--- NOTE | 2020-10-26 20:49 | NUR ---
ADMINISTERED IMODIUM AT THIS TIME FOR PT C/O DIARRHEA, PT STATES HE DOES NOT USUALLY HAVE DIARRHEA, BUT HAS HAD FREQUENT EPISODES SINCE BEING DIAGNOSED WITH COVID-19. WILL CONTINUE TO MONITOR BOWEL PATTERN.
--- NOTE | 2020-10-26 22:54 | NUR ---
2200 VENTOLIN HELD DUE TO LAST DOSE GIVEN LATE AT 2050.
[2020-10-27] VITALS (7 sets, daily range): BP systolic 133–156; BP diastolic 67–82
[2020-10-27] MEDS: RT-ALBUTEROL INHALER HFA (VENTOLIN HFA) 18 GM IH SCH ×6 (03:01→22:58)
[2020-10-27 05:48] LABS: BASOPHILS % (AUTO) 0 % (0-10); EOSINOPHILS % (AUTO) 0 % (0-10); HEMATOCRIT 37 % (40-54); LYMPHOCYTES # (AUTO) 0.8 10^3/uL (1.0-4.0); LYMPHOCYTES % (AUTO) 10 % (12-44); MEAN CORPUSCULAR HEMOGLOBIN 32 pg (25-34); MEAN CORPUSCULAR HGB CONC 33 g/dL (32-36); MEAN CORPUSCULAR VOLUME 99 fL (80-99); MEAN PLATELET VOLUME 9.9 fL (9.0-12.2); MONOCYTES # (AUTO) 0.8 10^3/uL (0.0-1.0); MONOCYTES % (AUTO) 9 % (0-12); NEUTROPHILS # (AUTO) 7.1 10^3/uL (1.8-7.8); NEUTROPHILS % (AUTO) 81 % (42-75); PLATELET COUNT 382 10^3/uL (130-400); WHITE BLOOD COUNT 8.9 10^3/uL (4.3-11.0)
[2020-10-27 06:02] LABS: ALBUMIN 3.4 GM/DL (3.2-4.5); CHLORIDE 108 MMOL/L (98-107); POTASSIUM 4.3 MMOL/L (3.6-5.0); SODIUM 140 MMOL/L (135-145)
[2020-10-27 06:04] LABS: CALCIUM 8.7 MG/DL (8.5-10.1)
[2020-10-27 06:05] LABS: GLUCOSE 89 MG/DL (70-105); TOTAL PROTEIN 6.5 GM/DL (6.4-8.2)
[2020-10-27 06:06] LABS: CARBON DIOXIDE 21 MMOL/L (21-32)
[2020-10-27 06:07] LABS: BILIRUBIN,TOTAL 0.6 MG/DL (0.1-1.0)
[2020-10-27 06:08] LABS: ALKALINE PHOSPHATASE 114 U/L (40-136); GFR ESTIMATED > 60
[2020-10-27 06:09] LABS: BUN/CREATININE RATIO 21
[2020-10-27 06:11] LABS: ALANINE AMINOTRANSFERASE 36 U/L (0-55)
[2020-10-27] MEDS: AZITHROMYCIN 250 MG TAB (ZITHROMAX) PO SCH (08:06)
[2020-10-27] MEDS: meTOproloL SUCCINATE 50 MG (TOPROL XL) TAB PO SCH (08:06)
--- NOTE | 2020-10-27 11:37 | Progress Note - Hospitalist ---
Subjective HPI/CC On Admission Date Seen by Provider: Oct 27, 2020 Time Seen by Provider: 11:00 Subjective/Events-last exam Labs ok Feels better Less coughing Less dyspnea Loose stools continue and Imodium helps C diff ordered No pain Review of Systems General: Fatigue, Malaise Gastrointestinal: Diarrhea Focused Exam Lactate Level Objective Exam Vital Signs Vital Signs Date Time Temp Pulse Resp B/P (MAP) Pulse Ox O2 Delivery O2 Flow Rate FiO2 10/28/20 03:39 36.7 62 20 148/71 (96) 94 Nasal Cannula 1.00 10/27/20 23:08 32 Capillary Refill : Less Than 3 SecondsLess Than 3 Seconds General Appearance: No Apparent Distress, WD/WN, Chronically ill Respiratory: Lungs Clear Cardiovascular: Regular Rate, Rhythm Neurologic/Psychiatric: Alert, Oriented x3, No Motor/Sensory Deficits, Normal Mood/Affect Results/Procedures Lab Patient resulted labs reviewed. Assessment/Plan Assessment and Plan Assess & Plan/Chief Complaint Assessment: Hypoxia Respiratory insufficiency COVID-19 PNA Loose stools HTN Plan: Home meds Abx Remdesivir O2 Monitor closely 10/27/20: Monitor O2 Monitor loose stools C diff ordered Clinical Quality Measures DVT/VTE Risk/Contraindication: Risk Factor Score Per Nursin RFS Level Per Nursing on Admit: 3=High SANJEEV KIRK DO Oct 27, 2020 11:37
[2020-10-27] MEDS: cefTRIAXone 1,000 MG/SWFI 10 ML IV PUSH IV SCH ×2 (13:43)
[2020-10-27] MEDS: ACETAMINOPHEN 500 MG TAB (TYLENOL) PO PRN ×2 (14:48→20:47)
[2020-10-27] MEDS: REMDESIVIR INJ 100 MG in NS (IVPB) 230 ML IV SCH (15:27)
[2020-10-27] MEDS: ENOXAPARIN 40 MG/0.4 ML (LOVENOX) SYR SC SCH (16:29)
[2020-10-28] VITALS (7 sets, daily range): BP systolic 137–158; BP diastolic 71–87
--- NOTE | 2020-10-28 07:22 | Progress Note - Hospitalist ---
Subjective HPI/CC On Admission Date Seen by Provider: Oct 28, 2020 Time Seen by Provider: 12:30 Subjective/Events-last exam Breathing better C diff pending Loose stools continue No pain reported 1L/min O2 now Review of Systems General: Fatigue, Malaise Pulmonary: Dyspnea Gastrointestinal: Diarrhea Objective Exam Vital Signs Vital Signs Date Time Temp Pulse Resp B/P (MAP) Pulse Ox O2 Delivery O2 Flow Rate FiO2 10/28/20 19:39 92 Nasal Cannula 2.00 10/28/20 15:35 36.6 62 20 137/81 (99) 10/27/20 23:08 32 Capillary Refill : Less Than 3 SecondsLess Than 3 Seconds General Appearance: No Apparent Distress, WD/WN Respiratory: Chest Non Tender, Lungs Clear, Normal Breath Sounds, No Accessory Muscle Use, No Respiratory Distress Cardiovascular: Regular Rate, Rhythm, No Edema, No Gallop, No JVD, No Murmur, Normal Peripheral Pulses Neurologic/Psychiatric: Alert, Oriented x3, No Motor/Sensory Deficits, Normal Mood/Affect Results/Procedures Lab Patient resulted labs reviewed. Assessment/Plan Assessment and Plan Assess & Plan/Chief Complaint Assessment: Hypoxia Respiratory insufficiency COVID-19 PNA Loose stools HTN Plan: Home meds Abx Remdesivir O2 Monitor closely 10/27/20: Monitor O2 Monitor loose stools C diff ordered 10/28/20: C diff O2 wean Monitor closely Diagnosis/Problems Diagnosis/Problems (1) Pneumonia due to COVID-19 virus Status: Acute (2) Acute respiratory failure with hypoxia Status: Acute (3) DVT prophylaxis Status: Acute (4) Debility Status: Acute (5) Weight loss Status: Acute (6) Hypoxia Status: Acute (7) Weight loss Status: Acute Clinical Quality Measures DVT/VTE Risk/Contraindication: Risk Factor Score Per Nursin RFS Level Per Nursing on Admit: 3=High SANJEEV KIRK DO Oct 28, 2020 07:22
[2020-10-28] MEDS: RT-ALBUTEROL INHALER HFA (VENTOLIN HFA) 18 GM IH SCH ×2 (07:35→19:39)
[2020-10-28] MEDS: AZITHROMYCIN 250 MG TAB (ZITHROMAX) PO SCH (09:27)
[2020-10-28] MEDS: meTOproloL SUCCINATE 50 MG (TOPROL XL) TAB PO SCH (09:27)
[2020-10-28] MEDS: cefTRIAXone 1,000 MG/SWFI 10 ML IV PUSH IV SCH ×2 (12:55)
[2020-10-28] MEDS: ENOXAPARIN 40 MG/0.4 ML (LOVENOX) SYR SC SCH (17:47)
[2020-10-28] MEDS: LOPERAMIDE 2 MG (IMODIUM) TABLET PO PRN (17:47)
[2020-10-28] MEDS: REMDESIVIR INJ 100 MG in NS (IVPB) 230 ML IV SCH (17:47)
[2020-10-29] MEDS: ACETAMINOPHEN 500 MG TAB (TYLENOL) PO PRN ×2 (04:47→21:46)
--- NOTE | 2020-10-29 06:31 | Progress Note - Hospitalist ---
Subjective HPI/CC On Admission Date Seen by Provider: Oct 29, 2020 Time Seen by Provider: 13:00 Subjective/Events-last exam NO major issues Loose stools improved C diff negative 1 L/min O2 now Feels good DC likely tomorrow Home O2 evalu Objective Exam Vital Signs Vital Signs Date Time Temp Pulse Resp B/P (MAP) Pulse Ox O2 Delivery O2 Flow Rate FiO2 10/29/20 16:38 63 2 94.00 90 10/29/20 15:35 37.2 17 128/73 (91) Nasal Cannula 10/27/20 23:08 32 Capillary Refill : Less Than 3 SecondsLess Than 3 Seconds General Appearance: No Apparent Distress, WD/WN, Chronically ill Respiratory: Lungs Clear Cardiovascular: Regular Rate, Rhythm Neurologic/Psychiatric: Alert, Oriented x3, No Motor/Sensory Deficits, Normal Mood/Affect Results/Procedures Lab Laboratory Tests 10/29/20 05:57 Patient resulted labs reviewed. Assessment/Plan Assessment and Plan Assess & Plan/Chief Complaint Assessment: Hypoxia Respiratory insufficiency COVID-19 PNA Loose stools HTN Plan: Home meds Abx Remdesivir O2 Monitor closely 10/27/20: Monitor O2 Monitor loose stools C diff ordered 10/28/20: C diff O2 wean Monitor closely 10/29/20: DC likely tomorrow Home O2 evaluation Diagnosis/Problems Diagnosis/Problems (1) Pneumonia due to COVID-19 virus Status: Acute (2) Acute respiratory failure with hypoxia Status: Acute (3) DVT prophylaxis Status: Acute (4) Debility Status: Acute (5) Weight loss Status: Acute (6) Hypoxia Status: Acute (7) Weight loss Status: Acute Clinical Quality Measures DVT/VTE Risk/Contraindication: Risk Factor Score Per Nursin RFS Level Per Nursing on Admit: 3=High SANJEEV KIRK DO Oct 29, 2020 06:31
[2020-10-29 06:38] LABS: BASOPHILS % (AUTO) 0 % (0-10); EOSINOPHILS % (AUTO) 1 % (0-10); HEMATOCRIT 38 % (40-54); HEMOGLOBIN 12.8 g/dL (13.3-17.7); LYMPHOCYTES % (AUTO) 13 % (12-44); MEAN CORPUSCULAR HEMOGLOBIN 32 pg (25-34); MEAN CORPUSCULAR HGB CONC 33 g/dL (32-36); MEAN CORPUSCULAR VOLUME 96 fL (80-99); MEAN PLATELET VOLUME 9.7 fL (9.0-12.2); MONOCYTES # (AUTO) 0.8 10^3/uL (0.0-1.0); MONOCYTES % (AUTO) 10 % (0-12); NEUTROPHILS # (AUTO) 5.9 10^3/uL (1.8-7.8); NEUTROPHILS % (AUTO) 75 % (42-75); PLATELET COUNT 377 10^3/uL (130-400); WHITE BLOOD COUNT 7.9 10^3/uL (4.3-11.0)
[2020-10-29 06:49] LABS: ALBUMIN 3.4 GM/DL (3.2-4.5); CHLORIDE 104 MMOL/L (98-107); POTASSIUM 3.9 MMOL/L (3.6-5.0); SODIUM 136 MMOL/L (135-145)
[2020-10-29 06:50] LABS: CALCIUM 8.5 MG/DL (8.5-10.1)
[2020-10-29 06:51] LABS: GLUCOSE 83 MG/DL (70-105); TOTAL PROTEIN 6.4 GM/DL (6.4-8.2)
[2020-10-29 06:52] LABS: CARBON DIOXIDE 20 MMOL/L (21-32)
[2020-10-29 06:53] LABS: BILIRUBIN,TOTAL 0.8 MG/DL (0.1-1.0)
[2020-10-29 06:55] LABS: ALKALINE PHOSPHATASE 107 U/L (40-136); CREATININE SERUM 0.96 MG/DL (0.60-1.30); GFR ESTIMATED > 60
[2020-10-29 06:56] LABS: BUN/CREATININE RATIO 23
[2020-10-29 06:58] LABS: ALANINE AMINOTRANSFERASE 114 U/L (0-55)
[2020-10-29] MEDS: RT-ALBUTEROL INHALER HFA (VENTOLIN HFA) 18 GM IH SCH ×2 (07:34→21:48)
[2020-10-29 08:00] VITALS: BP 151/85
[2020-10-29] MEDS: meTOproloL SUCCINATE 50 MG (TOPROL XL) TAB PO SCH (09:38)
[2020-10-29 15:35] VITALS: BP 128/73
--- NOTE | 2020-10-29 16:41 | NUR ---
PATIENT WAS 94% ON 2L/M OXYGEN PATIENT THEN PLACED ON ROOM AIR FOR 30 MIN SAT WAS DROPPED TO 90% AND REMAINED THERE PATIENT DID NOT QUALIFY FOR HOME OXYGEN AT THIS TIME Addendum: 10/29/20 at 1642 by TRINA GORDILLO RT Amended: Links added.
[2020-10-29] MEDS: ENOXAPARIN 40 MG/0.4 ML (LOVENOX) SYR SC SCH (17:26)
[2020-10-29] MEDS: REMDESIVIR INJ 100 MG in NS (IVPB) 230 ML IV SCH (17:26)
[2020-10-29] MEDS ORDERED: HYDROcodone/APAP 7.5 MG/325 MG (LORTAB, LORCET PLUS) TABLET PO PRN (18:30)
[2020-10-29] MEDS ORDERED: NON-FORMULARY MEDICATION 1 EA EA (Oxybutynin Chloride (Oxybutynin Chloride ER) 10 MG) PO SCH (21:00)
[2020-10-29] MEDS ORDERED: CYCLOBENZAPRINE 10 MG (FLEXERIL) TAB PO SCH (21:00)
[2020-10-29] MEDS ORDERED: ALFUZOSIN HCL 10 MG TAB (UROXATRAL) PO SCH (21:00)
[2020-10-29] MEDS: ALPRAZolam 0.5 MG (XANAX) TAB PO SCH (21:46)
[2020-10-29] MEDS: GABAPENTIN 600 MG (NEURONTIN) TAB PO SCH (21:46)
[2020-10-29] MEDS ORDERED: TAMSULOSIN 0.4 MG (FLOMAX) CAP PO SCH (22:00)
[2020-10-30] VITALS: BP 162/92
[2020-10-30 05:29] LABS: BASOPHILS % (AUTO) 0 % (0-10); EOSINOPHILS # (AUTO) 0.1 10^3/uL (0.0-0.3); EOSINOPHILS % (AUTO) 1 % (0-10); HEMATOCRIT 44 % (40-54); HEMOGLOBIN 14.4 g/dL (13.3-17.7); LYMPHOCYTES # (AUTO) 1.3 10^3/uL (1.0-4.0); LYMPHOCYTES % (AUTO) 15 % (12-44); MEAN CORPUSCULAR HEMOGLOBIN 32 pg (25-34); MEAN CORPUSCULAR HGB CONC 33 g/dL (32-36); MEAN CORPUSCULAR VOLUME 97 fL (80-99); MEAN PLATELET VOLUME 9.9 fL (9.0-12.2); MONOCYTES # (AUTO) 0.7 10^3/uL (0.0-1.0); MONOCYTES % (AUTO) 7 % (0-12); NEUTROPHILS # (AUTO) 6.8 10^3/uL (1.8-7.8); NEUTROPHILS % (AUTO) 76 % (42-75); PLATELET COUNT 427 10^3/uL (130-400)
[2020-10-30] MEDS: ALPRAZolam 0.5 MG (XANAX) TAB PO SCH ×2 (05:50→13:41)
[2020-10-30 05:59] LABS: ALANINE AMINOTRANSFERASE 111 U/L (0-55); ALBUMIN 3.7 GM/DL (3.2-4.5); ALKALINE PHOSPHATASE 127 U/L (40-136); BILIRUBIN,TOTAL 0.9 MG/DL (0.1-1.0); BUN/CREATININE RATIO 21; CALCIUM 8.9 MG/DL (8.5-10.1); CARBON DIOXIDE 23 MMOL/L (21-32); CHLORIDE 105 MMOL/L (98-107); CREATININE SERUM 1.07 MG/DL (0.60-1.30); GFR ESTIMATED > 60; GLUCOSE 80 MG/DL (70-105); POTASSIUM 3.9 MMOL/L (3.6-5.0); SODIUM 139 MMOL/L (135-145); TOTAL PROTEIN 7.2 GM/DL (6.4-8.2)
--- NOTE | 2020-10-30 08:02 | NUR ---
spo2 78% on RA at rest replaced O2 at 4L NC Spo2 increased to 93%
[2020-10-30 08:15] VITALS: BP 111/75
[2020-10-30] MEDS ORDERED: MELOXICAM 7.5 MG (MOBIC) TABLET PO SCH (09:00)
[2020-10-30] MEDS ORDERED: OXYBUTYNIN (DITROPAN) 5 MG TAB PO SCH (09:00)
--- NOTE | 2020-10-30 09:26 | NUR ---
CM/SS visited with patient via room phone for discharge planning. plan: The patient will return home with a new oxygen need at time of discharge. DME: CM/SS provided patient with a patient preference list. He chose [facility]. CM/SS contacted agency and spoke with Irma and faxed face sheet, h&p, and home o2 study. Will send script when available. They will deliver to the hospital. CM/SS will continue to follow.
[2020-10-30] MEDS: GABAPENTIN 600 MG (NEURONTIN) TAB PO SCH ×2 (09:43→13:41)
[2020-10-30] MEDS: meTOproloL SUCCINATE 50 MG (TOPROL XL) TAB PO SCH (09:43)
[2020-10-30] MEDS ORDERED: ALBU18HF2 IH (10:51)
--- NOTE | 2020-10-30 10:54 | Discharge Summary ---
Discharge Summary Hospital Course Was the Problem List Reviewed?: Yes Problems/Dx: (1) Pneumonia due to COVID-19 virus Status: Acute (2) Acute respiratory failure with hypoxia Status: Acute (3) DVT prophylaxis Status: Acute (4) Debility Status: Acute (5) Weight loss Status: Acute (6) Hypoxia Status: Acute (7) Weight loss Status: Acute Hospital Course Date of Admission: Oct 24, 2020 at 15:01 Admission Diagnosis : Family Physician/Provider: Channing Ayala MD Date of Discharge: 10/30/20 Discharge Diagnosis: COVID-19, hypoxia, diarrhea Hospital Course: Hospital course: Pt had a lengthy hospital course for seven days when he was admitted for Covid- 19 hypoxia with pneumonia and significant weight loss. He was provided gentle IV fluids at the beginning, placed on all Covid-19 standard of care treatment, oxygen remained at generally 6 liters throughout the entire hospital course, he was able to wean down significantly, during exertion he actually desaturated quite a bit to 78%, he met criteria for 4 liters of oxygen at discharge home and had no more diarrhea and overall felt really good. Labs and Pending Lab Test: Laboratory Tests 10/30/20 04:35: White Blood Count 9.0, Red Blood Count 4.48, Hemoglobin 14.4, Hematocrit 44, Mean Corpuscular Volume 97, Mean Corpuscular Hemoglobin 32, Mean Corpuscular Hemoglobin Concent 33, Red Cell Distribution Width 13.2, Platelet Count 427H, Mean Platelet Volume 9.9, Immature Granulocyte % (Auto) 1, Neutrophils (%) (Auto) 76H, Lymphocytes (%) (Auto) 15, Monocytes (%) (Auto) 7, Eosinophils (%) (Auto) 1, Basophils (%) (Auto) 0, Neutrophils # (Auto) 6.8, Lymphocytes # (Auto) 1.3, Monocytes # (Auto) 0.7, Eosinophils # (Auto) 0.1, Basophils # (Auto) 0.0, Immature Granulocyte # (Auto) 0.1, Sodium Level 139, Potassium Level 3.9, Chloride Level 105, Carbon Dioxide Level 23, Anion Gap 11, Blood Urea Nitrogen 23H, Creatinine 1.07, Estimat Glomerular Filtration Rate > 60, BUN/Creatinine Ratio 21, Glucose Level 80, Calcium Level 8.9, Corrected Calcium 9.1, Total Bilirubin 0.9, Aspartate Amino Transf (AST/SGOT) 47H, Alanine Aminotransferase (ALT/SGPT) 111H, Alkaline Phosphatase 127, Total Protein 7.2, Albumin 3.7 Microbiology 10/28/20 C. difficile GDH Antigen & Toxins - Final, Complete 10/24/20 Blood Culture - Final, Complete No growth 10/24/20 Urine Culture - Final, Complete NO GROWTH Home Meds Active Ventolin Hfa (Albuterol Sulfate) 18 Gm Hfa.aer.ad 0 Gm IH RTBID Reported Alprazolam 0.5 Mg Tablet 0.5 Mg PO Q8H Alfuzosin HCl ER (Alfuzosin HCl) 10 Mg Tab.er.24h 10 Mg PO HS Gabapentin 600 Mg Tablet 600 Mg PO TID Cyclobenzaprine HCl 10 Mg Tablet 10 Mg PO HS Oxybutynin Chloride ER (Oxybutynin Chloride) 10 Mg Tab.er.24 10 Mg PO HS Atorvastatin Calcium 10 Mg Tablet 10 Mg PO HS Toprol Xl (Metoprolol Succinate) 50 Mg Tab.er.24h 50 Mg PO DAILY Hydrocodone-Acetamin 7.5-325 (Hydrocodone/Acetaminophen) 1 Each Tablet 1 Tab PO Q6H PRN Meloxicam 15 Mg Tablet 15 Mg PO DAILY Assessment/Pt Instructions PCP 1 week Discharge Planning: <30 minutes discharge planning Discharge Instructions Discharge Diet: No Restrictions Pneumonia Vaccine Order Indica: Yes Discharge Physical Examination Vital Signs Vital Signs Date Time Temp Pulse Resp B/P (MAP) Pulse Ox O2 Delivery O2 Flow Rate FiO2 10/30/20 08:15 36.6 85 18 111/75 (87) 92 Nasal Cannula 4.00 10/27/20 23:08 32 General Appearance: No Apparent Distress, WD/WN Allergies: Coded Allergies: No Known Drug Allergies (Unverified , 10/24/20) Discharge Summary Date of Admission Oct 24, 2020 at 15:01 Date of Discharge Discharge Date: Oct 30, 2020 Discharge Diagnosis Assessment: Hypoxia Respiratory insufficiency COVID-19 PNA Loose stools HTN Plan: Home meds Abx Remdesivir O2 Monitor closely 10/27/20: Monitor O2 Monitor loose stools C diff ordered 10/28/20: C diff O2 wean Monitor closely 10/29/20: DC likely tomorrow Home O2 evaluation (1) Pneumonia due to COVID-19 virus Status: Acute (2) Acute respiratory failure with hypoxia Status: Acute (3) DVT prophylaxis Status: Acute (4) Debility Status: Acute (5) Weight loss Status: Acute (6) Hypoxia Status: Acute (7) Weight loss Status: Acute Clinical Quality Measures DVT/VTE Risk/Contraindication: Risk Factor Score Per Nursin RFS Level Per Nursing on Admit: 3=High SANJEEV KIRK DO Oct 30, 2020 10:54
[2020-10-30 14:30] VITALS: BP 111/75
--- NOTE | 2020-10-30 15:54 | NUR ---
"RD ASSESSMENT PMHx: no significant PMH; PT INTERACTION: Received dietary consult for MST score. Note pt currently in COVID isolation per chart review. Note all diet information for nutrition consult is per Krystle RN, or per chart review. Krystle states current appetite appears good. Note avg PO intake 75% x4d, per chart review. Krystle states no issues with nausea, vomiting, constipation, or diarrhea that she is aware of. Note last BM was 10/28, and pt not currently on bowel regimen per chart review. Note unable to determine recent wt hx, per chart review. Note unable to complete visual assessment d/t isolation precautions. Given PO intake, unknown wt hx, and inability to complete visual assessment, this RD is unable to determine if pt meets criteria for malnutrition. Given PO intake, it is unlikely pt would meet criteria at this time. ABNORMAL NUTRITION-RELATED LAB VALUES LOW: HIGH: BUN 23; AST 47; ALT 111; Est. kcal needs: 4212-4404 kcal | 20-25 kcal/kg Est. Pro needs: 78-98 g Pro | 0.8-1.0 g Pro/kg PES STATEMENT: Given current PO intake, no nutrition diagnosis at this time (NO-1.1). INTERVENTION: Continue with current diet order of Regular diet. DC current supplementation order of Ensure Enlive with meals, as current avg PO intake is 75% meals. Will continue to follow and reassess as pt needs, intake, and status change. Jb VALENTIN, MS RD LD [phone] cell"
== END 2020-10-30 14:10 | disposition home or self-care (01) | DRG 177 ==
LOC: EDUNIT# 11:03 → ER 11:04 → 4TH 15:01
PROVIDERS: ADMIT Family Medicine; ATTEND Internal Medicine
PROC: XW033E5 Introduction of Remdesivir Anti-infective into Peripheral Vein, Percutaneous Approach, New Technology Group 5 (ICD-10-PCS; principal; 2020-10-25)
DX: U07.1 COVID-19 (principal); J12.89 Other viral pneumonia; J96.01 Acute respiratory failure with hypoxia; R63.4 Abnormal weight loss; R19.7 Diarrhea, unspecified; R00.1 Bradycardia, unspecified; F41.9 Anxiety disorder, unspecified; M19.91 Primary osteoarthritis, unspecified site; Z68.27 Body mass index [BMI] 27.0-27.9, adult; Z87.891 Personal history of nicotine dependence; Z95.0 Presence of cardiac pacemaker; Z73.0 Burn-out
CPT/HCPCS: 36415; 71045; 71275; 80053; 81000; 83605; 83735; 84145; 85007; 85025; 85027; 85379; 85610; 85730; 86141; 87040; 87077; 87088; 87324; 87449; 93041; 94640; 94760; 94761

== ENCOUNTER 2022-06-23 03:13 | Emergency (ER) | payer MEDICARE, OTHER ==
[~2022-06-23] VITALS: Ht 188 cm; Wt 98.0 kg
[~2022-06-23 03:13] MED LIST: ALBU18HF2 IH; ALFU10TA12 PO; ALPR0.5T7 PO; ATOR10TA66 PO; CYCL10TA25 PO; GBPN600T PO; HYDR-3817 PO; MELO15TA39 PO; METO-352 PO; OXYB10TA29 PO
[2022-06-23 03:32] LABS: BASOPHILS # (AUTO) 0.1 10^3/uL (0.0-0.1); BASOPHILS % (AUTO) 1 % (0-10); EOSINOPHILS # (AUTO) 0.3 10^3/uL (0.0-0.3); EOSINOPHILS % (AUTO) 4 % (0-10); HEMATOCRIT 39 % (40-54); HEMOGLOBIN 13.2 g/dL (13.3-17.7); LYMPHOCYTES # (AUTO) 2.6 10^3/uL (1.0-4.0); LYMPHOCYTES % (AUTO) 34 % (12-44); MEAN CORPUSCULAR HEMOGLOBIN 34 pg (25-34); MEAN CORPUSCULAR HGB CONC 34 g/dL (32-36); MEAN CORPUSCULAR VOLUME 99 fL (80-99); MEAN PLATELET VOLUME 10.5 fL (9.0-12.2); MONOCYTES # (AUTO) 0.7 10^3/uL (0.0-1.0); MONOCYTES % (AUTO) 9 % (0-12); NEUTROPHILS # (AUTO) 3.9 10^3/uL (1.8-7.8); NEUTROPHILS % (AUTO) 52 % (42-75); PLATELET COUNT 210 10^3/uL (130-400); WHITE BLOOD COUNT 7.5 10^3/uL (4.3-11.0)
[2022-06-23 03:41] LABS: ALBUMIN 4.3 GM/DL (3.2-4.5)
[2022-06-23 03:42] LABS: POTASSIUM 3.6 MMOL/L (3.6-5.0)
[2022-06-23 03:43] LABS: CALCIUM 9.4 MG/DL (8.5-10.1)
[2022-06-23 03:44] LABS: TOTAL PROTEIN 6.9 GM/DL (6.4-8.2)
[2022-06-23 03:46] LABS: BILIRUBIN,TOTAL 0.7 MG/DL (0.1-1.0)
[2022-06-23 03:48] LABS: CREATININE SERUM 1.2 MG/DL (0.60-1.30)
--- NOTE | 2022-06-23 03:54 | ED Trauma-Multisystem ---
General Chief Complaint: Trauma EMS/Air Arrival Activat Stated Complaint: FALL Activation Level: Level 2 Nursing Triage Note: patient brought by ems with complaint of tripping and falling down 17 stairs onto concrete. complaint of pain rt shoulder/arm. Source of Information: Patient, EMS History of Present Illness Date Seen by Provider: Jun 23, 2022 Time Seen by Provider: 03:14 Initial Comments PT ARRIVES VIA EMS FROM HOME PT IS SITTING UP ON EMS CART, NO IMMOBILIZATION AROUND [phone], PT FELL DOWN 17 STEPS AND LANDED ON CONCRETE LANDING HEARD HIM FALL AND FOUND HIM A THE BOTTOM OF THE STAIRS. SHE HELPED HIM UP AND HE WALKED BACK UP ALL 17 STAIRS, AND INTO BED, THEN CALLED EMS PT DENIES HITTING HEAD OR HAVING LOSS OF CONSCIOUSNESS C/O RIGHT SHOULDER PAIN C/O LOW BACK PAIN --HAS CHRONIC LOW BACK PAIN AND TAKES HYDROCODONE DAILY FOR IT. HAS NOT TAKEN ANYTHING FOR PAIN SINCE HE FELL. HAS HAD 3 OR 4 LUMBAR SPINE SURGERIES; DENIES NECK PAIN--HAS HAD 3 CERVICAL SPINE SURGERIES NO LOSS OF BOWELS OR BLADDER NO PARESTHESIAS OR MOTOR DEFICITS NO CHEST PAIN OR SHORTNESS OF BREATH NO HIP OR LEG PAIN NO ABDOMINAL PAIN OR NAUSEA/VOMITING NO DIZZINESS NO VISION CHANGES THIS IS THE 3RD TIME HE HAS FALLEN SINCE MAY THE LAST TIME WAS ABOUT 2 WEEKS AGO--HE FELL IN GLIDE, DID NOT SEEK CARE, AND DROVE ALL THE WAY HOME DID NOT SEEK CARE FROM THE OTHER FALL EITHER. EMS GAVE FENTANYL 50 MCG PRIOR TO ARRIVAL. PT IS NOT ON ASPIRIN OR BLOOD THINNERS IN ADDITION TO HYDROCODONE DAILY, PT IS ALSO ON CYCLOBENZAPRINE, GABAPENTIN, OXYBUTYNIN AND ALPRAZOLAM HE ALSO TAKES MELOXICAM DAILY AND N-ACETYLCYSTEINE PT IS LEFT HANDED NO PRIOR PROBLEMS OR INJURIES TO RIGHT ARM STATES HE HAS NOT BEEN ABLE TO SLEEP FOR THE LAST 2 NIGHTS DUE TO BACK PAIN ON ARRIVAL, PT DENIES ALCOHOL USE, BUT MUCH LATER ADMITS TO "ONE SHOT OF RD DA KELSEY" IN [place]. PT IMMEDIATELY PLACED IN CERVICAL COLLAR AND LAID FLAT. LEVEL 2 TRAUMA ACTIVATION ON ARRIVAL PCP: DR. BLAIR--HAS NOT SEEN HIM RECENTLY HAS NOT SEEN A AUXILIARY EQUIPMENT OPERATOR IN YEARS, BUT WAS SEEING A [facility] AUXILIARY EQUIPMENT OPERATOR IN THE PAST--DR. RESENDIZ Allergies and Home Medications Allergies Coded Allergies: No Known Drug Allergies (Unverified , 10/24/20) Patient Home Medication List Home Medication List Reviewed: Yes Albuterol Sulfate (Ventolin Hfa) 18 Gm Hfa.aer.ad, 0 GM IH RTBID Prescribed by: SANJEEV KIRK on 10/30/20 1051 Alfuzosin HCl (Alfuzosin HCl ER) 10 Mg Tab.er.24h, 10 MG PO HS, (Reported) Entered as Reported by: CALIXTO ROGEL on 10/24/202347 Alprazolam (Alprazolam) 0.5 Mg Tablet, 0.5 MG PO Q8H, (Reported) Entered as Reported by: CALIXTO ROGEL on 10/24/20 235 Atorvastatin Calcium (Atorvastatin Calcium) 10 Mg Tablet, 10 MG PO HS, (Reported) Entered as Reported by: CALIXTO ROGEL on 10/24/202347 Cyclobenzaprine HCl (Cyclobenzaprine HCl) 10 Mg Tablet, 10 MG PO HS, (Reported) Entered as Reported by: CALIXTO ROGEL on 10/24/202347 Gabapentin (Gabapentin) 600 Mg Tablet, 600 MG PO TID, (Reported) Entered as Reported by: CALIXTO ROGEL on 10/24/202347 Hydrocodone/Acetaminophen (Hydrocodone-Acetamin 7.5-325) 1 Each Tablet, 1 TAB PO Q6H PRN for PAIN-MODERATE (5-7), (Reported) Entered as Reported by: CAILXTO ROGEL on 10/24/202347 Meloxicam (Meloxicam) 15 Mg Tablet, 15 MG PO DAILY, (Reported) Entered as Reported by: CALIXTO ROGEL on 10/24/202347 Metoprolol Succinate (Toprol Xl) 50 Mg Tab.er.24h, 50 MG PO DAILY, (Reported) Entered as Reported by: CALIXTO ROGEL on 10/24/202347 Oxybutynin Chloride (Oxybutynin Chloride ER) 10 Mg Tab.er.24, 10 MG PO HS, (Reported) Entered as Reported by: CALIXTO ROGEL on 10/24/202347 Review of Systems Review of Systems Constitutional: no symptoms reported Eyes: No Symptoms Reported Ears: No Symptoms Reported Nose: No Symptoms Reported Mouth: No Symptoms Reported Throat: No Symptoms to Report Respiratory: no symptoms reported Cardiovascular: No Symptoms Reported Gastrointestinal: no symptoms reported Genitourinary: no symptoms reported Musculoskeletal: see HPI Skin: no symptoms reported Psychiatric/Neurological: No Symptoms Reported Past Pejspgu-[id number]-[id number] Hx Patient Social History Tobacco Use?: Yes Substance use?: No Alcohol Use?: Yes Seasonal Allergies Seasonal Allergies: No Past Medical History Surgeries: Yes (HERNIA REPAIR) Abdominal, Orthopedic, Pacemaker Respiratory: Yes (COVID PNEUMONIA 10/2020. 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 ) Degenerate Disk Disease, Arthritis, Chronic Back Pain Endocrine: No HEENT: No Cancer: No Psychosocial: Yes Sleep Difficulties, Anxiety Integumentary: No Blood Disorders: No Adverse Reaction/Blood Tranf: No Family Medical History No Pertinent Family Hx SOCIAL HISTORY: -SMOKING--SMOKED 2 PPD, QUIT -ETOH--HISTORY OF ABUSE, CLAIMS NO RECENT USE ON 06/23/22 BUT ETOH LEVEL 73, LATER ADMITS TO "ONE SHOT OF RD DENNIS" ON 06/23/22 -DRUGS--DENIES USE PAST SURGICAL HISTORY: -PACEMAKER X4 -HERNIA REPAIR -CERVICAL SPINE SURGERY X 2 -LUMBAR SPINE SURGERY X 3-4 Physical Exam Vital Signs Vital Signs - First Documented 06/23/22 06/23/22 03:16 03:25 Temp 36.7 Pulse 64 Resp 18 B/P (MAP) 160/100 (120) Pulse Ox 99 O2 Delivery Room Air O2 Flow Rate 2.00 FiO2 99 Height, Weight, BMI Height: '" Weight: lbs. oz. kg; 27.00 BMI Method: General Appearance: WD/WN, Anxious, Other (VERY DRAMATIC, ANXIOUS, HYPERVENTILATING--STOPS WHEN DISTRACTED. ) Head: No Evidence of Injury Ears, Nose, Throat: Hearing Grossly Normal, No Evidence of ENT Injury, No Dental Injury Neck: Other (IN CERVICAL COLLAR) Cardiovascular: Regular Rate, Rhythm, No Edema, No JVD, No Murmur, Normal P eripheral Pulses Respiratory: Chest Non Tender, Normal Breath Sounds, No Accessory Muscle Use, No Respiratory Distress Back: Decreased Range of Motion, Other (DIFFUSE BACK TENDERNESS.) Extremity: No Calf Tenderness, No Pedal Edema, Other (TENDERNESS TO RIGHT SHOULDER AND UPPER ARM. LIMITED ROM AT SHOULDER DUE TO PAIN. DISTAL MOTOR/SENSORY/VASCULAR INTACT. ) Neurologic/Psychiatric: Alert, Oriented x3, No Motor/Sensory Deficits, seat builder II- XII Norm as Tested Skin: Normal Color, Warm/Dry; No Ecchymosis; Other (NO EXTERNAL EVIDENCE OF TRAUMA NOTED AT THIS TIME. ) Harrah Coma Score Best Eye Response (Harrah): (4) Open Spontaneously Best Verbal Response (Harrah): (5) Oriented Best Motor Response (Naseem): (6) Obeys Commands Naseem Total: 15 Procedures/Interventions Splinting and Joint Reduction : Immobilizers: XL Shoulder Progress/Results/Core Measures Results/Orders Lab Results Laboratory Tests Test 06/23/22 03:20 06/23/22 04:20 Range/Units White Blood Count 7.5 4.3-11.0 10^3/uL Red Blood Count 3.94 L 4.30-5.52 10^6/uL Hemoglobin 13.2 L 13.3-17.7 g/dL Hematocrit 39 L 40-54 % Mean Corpuscular Volume 99 80-99 fL Mean Corpuscular Hemoglobin 34 25-34 pg Mean Corpuscular Hemoglobin Concent 34 32-36 g/dL Red Cell Distribution Width 13.2 10.0-14.5 % Platelet Count 210 130-400 10^3/uL Mean Platelet Volume 10.5 9.0-12.2 fL Immature Granulocyte % (Auto) 0 % Neutrophils (%) (Auto) 52 42-75 % Lymphocytes (%) (Auto) 34 12-44 % Monocytes (%) (Auto) 9 0-12 % Eosinophils (%) (Auto) 4 0-10 % Basophils (%) (Auto) 1 0-10 % Neutrophils # (Auto) 3.9 1.8-7.8 10^3/uL Lymphocytes # (Auto) 2.6 1.0-4.0 10^3/uL Monocytes # (Auto) 0.7 0.0-1.0 10^3/uL Eosinophils # (Auto) 0.3 0.0-0.3 10^3/uL Basophils # (Auto) 0.1 0.0-0.1 10^3/uL Immature Granulocyte # (Auto) 0.0 0.0-0.1 10^3/uL Sodium Level 140 135-145 MMOL/L Potassium Level 3.6 3.6-5.0 MMOL/L Chloride Level 106 98-107 MMOL/L Carbon Dioxide Level 17 L 21-32 MMOL/L Anion Gap 17 H 5-14 MMOL/L Blood Urea Nitrogen 19 H 7-18 MG/DL Creatinine 1.20 0.60-1.30 MG/DL Estimat Glomerular Filtration Rate 65 BUN/Creatinine Ratio 16 Glucose Level 107 H 70-105 MG/DL Calcium Level 9.4 8.5-10.1 MG/DL Corrected Calcium 9.2 8.5-10.1 MG/DL Magnesium Level 2.0 1.6-2.4 MG/DL Total Bilirubin 0.7 0.1-1.0 MG/DL Aspartate Amino Transf (AST/SGOT) 20 5-34 U/L Alanine Aminotransferase (ALT/SGPT) 23 0-55 U/L Alkaline Phosphatase 95 40-136 U/L Total Creatine Kinase 111 30-200 U/L Creatine Kinase MB 1.6 <6.6 NG/ML Myoglobin 72.1 10.0-92.0 NG/ML Total Protein 6.9 6.4-8.2 GM/DL Albumin 4.3 3.2-4.5 GM/DL Serum Alcohol 73 H <10 MG/DL Urine Color YELLOW Urine Clarity CLEAR Urine pH 6.5 5-9 Urine Specific [place] <=1.005 1.016-1.022 Urine Protein NEGATIVE NEGATIVE Urine Glucose (UA) NEGATIVE NEGATIVE Urine Ketones NEGATIVE NEGATIVE Urine Nitrite NEGATIVE NEGATIVE Urine Bilirubin NEGATIVE NEGATIVE Urine Urobilinogen 0.2 < = 1.0 MG/DL Urine Leukocyte Esterase NEGATIVE NEGATIVE Urine RBC (Auto) NEGATIVE NEGATIVE Urine RBC NONE /HPF Urine WBC NONE /HPF Urine Crystals NONE /LPF Urine Bacteria NEGATIVE /HPF Urine Casts NONE /LPF Urine Mucus NEGATIVE /LPF Urine Culture Indicated NO Urine Opiates Screen POSITIVE H NEGATIVE Urine Oxycodone Screen NEGATIVE NEGATIVE Urine Methadone Screen NEGATIVE NEGATIVE Urine Propoxyphene Screen NEGATIVE NEGATIVE Urine Barbiturates Screen NEGATIVE NEGATIVE Ur Tricyclic Antidepressants Screen NEGATIVE NEGATIVE Urine Phencyclidine Screen NEGATIVE NEGATIVE Urine Amphetamines Screen NEGATIVE NEGATIVE Urine Methamphetamines Screen NEGATIVE NEGATIVE Urine Benzodiazepines Screen POSITIVE H NEGATIVE Urine Cocaine Screen NEGATIVE NEGATIVE Urine Cannabinoids Screen NEGATIVE NEGATIVE My Orders Orders - KERMIT TORIBIO DO Ed Iv/Invasive Line Start (06/23/22 03:21) Ekg Tracing (06/23/22 03:21) O2 (06/23/22 03:21) Monitor-Rhythm Ecg Trace Only (06/23/22 03:21) Alcohol (06/23/22 03:21) Cbc With Automated Diff (06/23/22 03:21) Comprehensive Metabolic Panel (06/23/22 03:21) Creatine Kinase (06/23/22 03:21) Creatine Kinase Mb (06/23/22 03:21) Drug Screen Stat (Urine) (06/23/22 03:21) Magnesium (06/23/22 03:21) Ua Culture If Indicated (06/23/22 03:21) Myoglobin Serum (06/23/22 03:21) Ct Head/Cervical Spine Wo (06/23/22 03:21) Ct Thoracic/Lumbar Spine Wo (06/23/22 03:21) Chest 1 View, Ap/Pa Only (06/23/22 03:21) Shoulder, Right, 3 Views (06/23/22 03:21) Humerus, Right, 2 Views (06/23/22 03:21) Pelvis 1 To 2 Views (06/23/22 03:21) Ct Chest/Abdomen/Pelvis W (06/23/22 03:21) Fentanyl Inj (Sublimaze Injection) (06/23/22 05:30) Shoulder Immoblizer (06/23/22 06:56) Medications Given in ED Current Medications Medications Dose Ordered Sig/Vivian Route Start Time Stop Time Status Last Admin Dose Admin Fentanyl Citrate 50 mcg ONCE ONCE IVP 06/23/22 05:30 06/23/22 05:31 DC 06/23/22 05:29 50 MCG Vital Signs/I&O 06/23/22 06/23/22 03:16 03:25 Temp 36.7 Pulse 64 Resp 18 B/P (MAP) 160/100 (120) Pulse Ox 99 O2 Delivery Room Air Nasal Cannula O2 Flow Rate 2.00 FiO2 99 Blood Pressure Mean: 120 Progress Progress Note : Progress Note PT IS NOT HYPERVENTILATING AND IS LESS ANXIOUS ON RETURN FROM CT. GIVEN ADDITIONAL FENTANYL FOR PAIN MARKED DELAY IN OBTAINING CT REPORTS 528--CALLED [facility], THEY RECEIVED PT'S IMAGES 1 1/2 HOURS AGO, THE STILL HAVE 5 OTHER PATIENT'S STUDIES TO READ BEFORE THEY CAN GET TO THIS PATIENT'S, WITH AN ESTIMATED ADDITIONAL HOUR WAIT AT THIS TIME. 0527--CALLED [facility] AND ADVISED HER OF THE ABOVE, AND SHE WILL CALL [facility]. PRIOR TO DISMISSAL, PT'S RIGHT SHOULDER WAS NOTED TO SUBLUX AT INTERVALS, DEPENDING ON POSITION, BUT NOT COMPLETELY DISLOCATE, AND WILL RE-ALIGN WHEN ARM IS IN CERTAIN POSITIONS. . JOINT APPEARS VERY LOOSE. PT PLACED IN SHOULDER IMMOBILIZER. WILL REFER TO ORTHOPEDICS PT HAS PACEMAKER AND IS UNABLE TO HAVE MRI--STATES THE WIRES ARE THE ORIGINAL WIRES AND ARE NOT MRI COMPATIBLE. Initial ECG Impression Date: Jun 23, 2022 Initial ECG Impression Time: 04:18 Initial ECG Rate: 64 Initial ECG Rhythm: Normal Sinus (IVCD) Diagnostic Imaging Comments [facility]--ALL PENDING RADIOLOGIST REVIEW CXR--NO ACUTE PROCESS, CHRONIC LUNG CHANGES RIGHT SHOULDER AND RIGHT HUMERUS--NO FRACTURE OR DISLOCATION PELVIS--NO FRACTURE OR DISLOCATION CT HEAD/CERVICAL SPINE--PER [facility] VIA FAX AT 0601 -NO ACUTE INTRACRANIAL HEMORRHAGE, MIDLINE SHIFT OR MASS EFFECT -CHRONIC MICROANGIOPATHY -NO CERVICAL SPINE FRACTURE -CHRONIC DEGENERATIVE CHANGES OF CERVICAL SPINE, AND POST SURGICAL CHANGES CT HEAD/CERVICAL SPINE--PER [facility] REPORT AT 0621 FINDINGS: CT HEAD: Generalized atrophic changes with prominence of ventricles and sulci. No abnormal areas of decreased attenuation suggest edema. High density, likely calcification along the surface of the midbrain posteriorly. No intracranial hemorrhage. No appreciable midline shift or mass effect. There is extensive streak artifact over the skull base and posterior fossa. Bony calvarium intact. Paranasal sinuses mastoid air cells clear. CT CERVICAL SPINE: Cervical spine alignment is anatomic. Bony fusion across C5-C6 disc space along with anterior plate and screws over C6-C7 disc level. The posterior elements are intact with mild hypertrophic facet arthropathy. Mild disc space narrowing nonfused segments. Odontoid intact. Paraspinal soft tissues are unremarkable. Visualized lung apices unremarkable. IMPRESSION: CT HEAD: 1. Negative for acute traumatic intracranial abnormality. 2. Generalized atrophic changes. CT CERVICAL SPINE: 1. Negative for acute fracture or traumatic subluxation. 2. Prior surgical changes lower cervical spine. Additional multilevel cervical spondylosis. CT CHEST/ABDOMEN/PELVIS--PER [facility] REPORT AT 0622 FINDINGS: CT CHEST: Right-sided pacemaker with metallic artifact. Heart size normal. No pericardial effusion. Thoracic aorta unremarkable. No mediastinal hematoma. Small esophageal hernia. Chronic appearing change about the lung parenchyma. Minimal scarring or atelectasis particularly at lung bases. No evidence for pulmonary infiltrate or contusion. May be trace effusion. No pneumothorax. Positive for mildly displaced left posterior lateral rib 11 and 12 fractures. Sternum and thoracic spine negative for acute findings. CT ABDOMEN and PELVIS: Liver, contracted gallbladder, fatty atrophic pancreas, and adrenal glands unremarkable. The spleen demonstrates likely small clefts. No definitive acute abnormality. No perisplenic fluid collection. Very small splenule in the hilum. Probable small cyst superior pole left kidney. Kidneys otherwise with normal enhancement. Abdominal aorta mild atherosclerotic changes, nonaneurysmal. No abdominal ascites and/or free air. Gastrointestinal tract without obstruction or inflammation. Urinary bladder unremarkable. Prostate gland unremarkable for the patient's age. Prior decompression and posterior fusion lumbosacral spine. No acute bony abnormality. Pelvis including bilateral hips demonstrate no acute findings. IMPRESSION: CT CHEST: 1. Positive for minimally displaced left posterior lateral rib 11 and 12 fractures, likely acute. CT ABDOMEN and PELVIS: 1. Negative for acute traumatic abnormality about the abdomen and/or pelvis. 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 The vertebral body heights demonstrate no acute compression deformity. Mild multilevel thoracic spondylosis. Bridging osteophytes of the lower thoracic spine. Posterior elements intact and in normal alignment. Chronic appearing changes of the lung parenchyma. Trace pleural effusion versus pleural thickening. Minimally displaced left rib 12 fracture. Lumbar spine: Prior decompressive laminectomies at the L4-L5 level. Interbody fusion L5-S1 level with posterior transpedicular screws and interconnecting rods, L4-L5-S1. There is degenerative retrolisthesis L3 on L4. Alignment otherwise anatomic. No acute fracture. There is moderate to marked spinal canal stenosis L1-L2 and L2-L3 and to a greater extent L3-L4. Paraspinal soft tissues are unremarkable. Rather prominent fatty atrophic changes pancreas. IMPRESSION: 1. Negative for acute fracture thoracic spine. Diffuse thoracic spondylosis. 2. Minimally displaced left rib 12 fracture. 3. Negative for acute fracture lumbar spine. Prior surgical changes of posterior decompression and fusion lumbosacral spine. Multifocal significant spinal canal stenosis of the nonfused segments. Reviewed: Reviewed by Me Departure Impression Primary Impression: Fall down stairs Additional Impressions: Alcohol use Polypharmacy CHRONIC BACK PAIN-OPIATE DEPENDENT LEFT RIB FRACTURES #11 AND #12 Acute exacerbation of chronic low back pain Right shoulder injury Disposition: 01 HOME, SELF-CARE Condition: Stable Departure-Patient Inst. Decision time for Depature: 06:42 Referrals: MADELYN BLAIR MD (PCP/Family) Primary Care Physician SUSAN SAMUELS MD Patient Instructions: Low Back Pain ED, Preventing Falls ED, Rib Fractures in Adults, Shoulder Pain (DC), How to Use a Shoulder Sling Add. Discharge Instructions: WEAR SHOULDER IMMOBILIZER AT ALL TIMES ICE TO SORE AREAS AT 20 MINUTE INTERVALS NO ALCOHOL CONTINUE YOUR REGULAR MEDICATIONS PRESCRIBED FOLLOW UP WITH DR. BLAIR IN 3-4 DAYS FOR FURTHER CARE, RETURN TO ER IF YOU DEVELOP NEW OR WORSENING SYMPTOMS FOLLOW UP WITH DR. SAMUELS, ORTHOPEDIC SURGEON, THIS WEEK FOR FURTHER EVALUATION OF SHOULDER INJURY All discharge instructions reviewed with patient and/or family. Voiced understanding. KERMIT TORIBIO DO Jun 23, 2022 03:54
[2022-06-23 03:58] LABS: CREATINE KINASE MB 1.6 NG/ML (<6.6)
[2022-06-23 04:29] LABS: BILIRUBIN,URINE NEGATIVE (NEGATIVE); CLARITY,URINE CLEAR; COLOR,URINE YELLOW; GLUCOSE, URINE (UA) NEGATIVE (NEGATIVE); KETONES,URINE NEGATIVE (NEGATIVE); LEUKOCYTE ESTERASE ,URINE NEGATIVE (NEGATIVE); NITRITE,URINE NEGATIVE (NEGATIVE); PH,URINE 6.5 (5-9); PROTEIN,URINE NEGATIVE (NEGATIVE)
[2022-06-23 04:45] LABS: BENZODIAZEPINES SCREEN URINE POSITIVE (NEGATIVE)
[2022-06-23 04:46] LABS: AMPHETAMINE SCREEN, URINE NEGATIVE (NEGATIVE); BARBITURATE SCREEN URINE NEGATIVE (NEGATIVE); CANNABINOID SCREEN, URINE NEGATIVE (NEGATIVE); COCAINE SCREEN URINE NEGATIVE (NEGATIVE); METHADONE STAT NEGATIVE (NEGATIVE); OPIATE SCREEN URINE POSITIVE (NEGATIVE); OXYCODONE STAT NEGATIVE (NEGATIVE); PROPOXYPHENE STAT NEGATIVE (NEGATIVE); TRICYCLIC ANTIDEPRESSANTS SCRE NEGATIVE (NEGATIVE)
[2022-06-23 04:49] LABS: BACTERIA,URINE NEGATIVE /HPF
[2022-06-23] MEDS ORDERED: fentaNYL INJ 100 MCG/2 ML AMP IVP ONE (05:30)
--- NOTE | 2022-06-23 05:44 | Diagnostic Imaging Report ---
PROCEDURE: CT head and CT cervical spine without contrast. TECHNIQUE: Multiple contiguous axial images were obtained through the brain and cervical spine without the use of intravenous contrast. Sagittal and coronal reformations through the cervical spine were then performed. Auto Exposure Controls were utilized during the CT exam to meet ALARA standards for radiation dose reduction. INDICATION: 72-year-old male, trauma, fall, pain CORRELATION STUDY: None FINDINGS: CT HEAD: Generalized atrophic changes with prominence of ventricles and sulci. No abnormal areas of decreased attenuation suggest edema. High density, likely calcification along the surface of the midbrain posteriorly. No intracranial hemorrhage. No appreciable midline shift or mass effect. There is extensive streak artifact over the skull base and posterior fossa. Bony calvarium intact. Paranasal sinuses mastoid air cells clear. CT CERVICAL SPINE: Cervical spine alignment is anatomic. Bony fusion across C5-C6 disc space along with anterior plate and screws over C6-C7 disc level. The posterior elements are intact with mild hypertrophic facet arthropathy. Mild disc space narrowing nonfused segments. Odontoid intact. Paraspinal soft tissues are unremarkable. Visualized lung apices unremarkable. IMPRESSION: CT HEAD: 1. Negative for acute traumatic intracranial abnormality. 2. Generalized atrophic changes. CT CERVICAL SPINE: 1. Negative for acute fracture or traumatic subluxation. 2. Prior surgical changes lower cervical spine. Additional multilevel cervical spondylosis. Dictated by: Dictated on workstation # [id number]
--- NOTE | 2022-06-23 06:08 | Diagnostic Imaging Report ---
PROCEDURE: CT chest, abdomen, and pelvis with contrast. TECHNIQUE: Multiple contiguous axial images were obtained through the chest, abdomen, and pelvis after the administration of intravenous contrast. Auto Exposure Controls were utilized during the CT exam to meet ALARA standards for radiation dose reduction. INDICATION: 72-year-old male, fall, pain. CORRELATION STUDY: CT chest 10/24/2020 FINDINGS: CT CHEST: Right-sided pacemaker with metallic artifact. Heart size normal. No pericardial effusion. Thoracic aorta unremarkable. No mediastinal hematoma. Small esophageal hernia. Chronic appearing change about the lung parenchyma. Minimal scarring or atelectasis particularly at lung bases. No evidence for pulmonary infiltrate or contusion. May be trace effusion. No pneumothorax. Positive for mildly displaced left posterior lateral rib 11 and 12 fractures. Sternum and thoracic spine negative for acute findings. CT ABDOMEN and PELVIS: Liver, contracted gallbladder, fatty atrophic pancreas, and adrenal glands unremarkable. The spleen demonstrates likely small clefts. No definitive acute abnormality. No perisplenic fluid collection. Very small splenule in the hilum. Probable small cyst superior pole left kidney. Kidneys otherwise with normal enhancement. Abdominal aorta mild atherosclerotic changes, nonaneurysmal. No abdominal ascites and/or free air. Gastrointestinal tract without obstruction or inflammation. Urinary bladder unremarkable. Prostate gland unremarkable for the patient's age. Prior decompression and posterior fusion lumbosacral spine. No acute bony abnormality. Pelvis including bilateral hips demonstrate no acute findings. IMPRESSION: CT CHEST: 1. Positive for minimally displaced left posterior lateral rib 11 and 12 fractures, likely acute. CT ABDOMEN and PELVIS: 1. Negative for acute traumatic abnormality about the abdomen and/or pelvis. Dictated by: Dictated on workstation # [id number]
--- NOTE | 2022-06-23 06:22 | Diagnostic Imaging Report ---
INDICATION: Arm pain FINDINGS: Two-view right humerus shows arthritic changes to the shoulder and elbow joints but no fracture or dislocation. IMPRESSION: No acute appearing abnormality. Dictated by: Dictated on workstation # [id number]
--- NOTE | 2022-06-23 06:24 | Diagnostic Imaging Report ---
INDICATION: Fall FINDINGS: There is glenohumeral and acromioclavicular arthritis. No dislocation or joint separation. Pacemaker device unremarkable. The visualized right ribs, pleura and lung nonacute. The clavicle is intact. IMPRESSION: Degenerative and postsurgical changes but no fracture or acute appearing abnormality identified. Dictated by: Dictated on workstation # [id number]
--- NOTE | 2022-06-23 06:25 | Diagnostic Imaging Report ---
INDICATION: Pelvic pain. FINDINGS: Lower lumbar spondylosis, laminectomy and multilevel fusion present. There is mild arthritic changes to the hips. No bony avulsion, joint separation or fracture deformity. Urinary bladder midline. IMPRESSION: No pelvic fracture or traumatic malalignment identified Dictated by: Dictated on workstation # [id number]
--- NOTE | 2022-06-23 06:27 | Diagnostic Imaging Report ---
INDICATION: Fall, chronic lung disease FINDINGS: Prominence of the interstitial lung markings as a chronic finding noted. No focal consolidation, evidence for edema, effusion or pneumothorax. A pacemaker device stable. No chest wall fracture deformity. IMPRESSION: No acute or posttraumatic sequelae identified. Dictated by: Dictated on workstation # [id number]
--- NOTE | 2022-06-23 06:27 | Diagnostic Imaging Report ---
PROCEDURE: CT thoracic and lumbar spine without contrast. TECHNIQUE: Multiple contiguous axial images were obtained through the thoracic and lumbar spine without the use of intravenous contrast. Sagittal and coronal reformations were then performed. All CT scans use one or more of the following dose optimizing techniques: automated exposure control, MA and/or KvP adjustment based on a patient size and exam type, or iterative reconstruction. INDICATION: 72-year-old male, fall, pain CORRELATION STUDY: None FINDINGS: Thoracic spine: Thoracic spinal alignment is anatomic. The vertebral body heights demonstrate no acute compression deformity. Mild multilevel thoracic spondylosis. Bridging osteophytes of the lower thoracic spine. Posterior elements intact and in normal alignment. Chronic appearing changes of the lung parenchyma. Trace pleural effusion versus pleural thickening. Minimally displaced left rib 12 fracture. Lumbar spine: Prior decompressive laminectomies at the L4-L5 level. Interbody fusion L5-S1 level with posterior transpedicular screws and interconnecting rods, L4-L5-S1. There is degenerative retrolisthesis L3 on L4. Alignment otherwise anatomic. No acute fracture. There is moderate to marked spinal canal stenosis L1-L2 and L2-L3 and to a greater extent L3-L4. Paraspinal soft tissues are unremarkable. Rather prominent fatty atrophic changes pancreas. IMPRESSION: 1. Negative for acute fracture thoracic spine. Diffuse thoracic spondylosis. 2. Minimally displaced left rib 12 fracture. 3. Negative for acute fracture lumbar spine. Prior surgical changes of posterior decompression and fusion lumbosacral spine. Multifocal significant spinal canal stenosis of the nonfused segments. Dictated by: Dictated on workstation # [id number]
[2022-06-23 07:01] VITALS: BP 154/90
== END 2022-06-23 07:04 | disposition home or self-care (01) ==
LOC: EDUNIT# 03:13 → ER 03:14
DX: S22.42XA Multiple fractures of ribs, left side, initial encounter for closed fracture (principal); S49.91XA Unspecified injury of right shoulder and upper arm, initial encounter; T88.7XXA Unspecified adverse effect of drug or medicament, initial encounter; Z72.89 Other problems related to lifestyle; Z72.0 Tobacco use; W10.9XXA Fall (on) (from) unspecified stairs and steps, initial encounter
CPT/HCPCS: 70450; 71045; 71260; 72125; 72128; 72131; 72170; 73030; 73060; 74177; 80053; 80306; 81000; 82550; 82553; 83735; 83874; 85025; 93005; 93041; 99291; G0390; G0480; 36415; 80320

== ENCOUNTER → 2023-09-30 | Outpatient (CLI) | payer MEDICARE, OTHER | LOC: ORTHO 10:53 | PROVIDERS: ATTEND Orthopaedic Surgery | DX: M17.11 Unilateral primary osteoarthritis, right knee (principal) | CPT/HCPCS: 20610; G0463 ==